=== PATIENT | female | born 1985 | race Caucasian/White ===

== ENCOUNTER 2018-02-21 10:11 | Inpatient (IN) | payer OTHER, MEDICAID ==
[2018-02-21] MEDS ORDERED: COLACE PO PRN (10:12)
[2018-02-21] MEDS ORDERED: DEEP SEA NS PRN (10:12)
[2018-02-21] MEDS ORDERED: SENOKOT S PO PRN (10:12)
--- NOTE | 2018-02-21 10:54 | History and Physical Report ---
History of Present Illness Date of examination: 02/21/18 (pt sent for APU admission from [facility] office due to elevated BP) Date of admission: 02/21/18 10:11 History of present illness: EDC Confirmation: 05/28/2018 Gestational Age: 6 2/7 weeks Past History : 6 Term Births: 0 Premature Births: 1 Living Children: 1 Para: 1 Mult. Births: 0 Prev : 0 Aborta: 3 Elect. Ab: 1 Spont. Ab: 2 Ectopics: 0 # 1 Delivery date: 2001 Weeks Gestation: 6 Delivery type: EAB Comments: D & C # 2 Delivery date: 2004 Weeks Gestation: 8 Delivery type: SAB # 3 Delivery date: 06/06/2012 Weeks Gestation: 19 Delivery type: SAB Delivery location: [place] Comments: hx supports cx incompetence/followed by labor D & E # 4 Delivery date: 03/08/2013 Weeks Gestation: 23 labor: yes Delivery type: Hours of labor: 18 Delivery location: [place] Infant Sex: Female weight: 1 lb 2 oz Name: Wilber Comments: Cerclage placed PPROM (cerclage was placed at 14 wga) # 5 Delivery date: 2015 Weeks Gestation: 14 Delivery type: SAB Comments: was in L&D for cerclage and dx IUFD Past Medical History: Reviewed history from 05/03/2016 and no changes required: D V T (2009) PCOS Pulmonary embolism with OCPs Cerclage (2012) Factor V leiden deficiency Past Medical History Abnormal PAP: negative REGGIE Exposure: negative Infertility: negative Uterine Anomaly: negative Uterine Surgery (not C/S): negative Other Gynecologic Problems: negative Social Hx: Patient is single [employer] Smoking History: Patient has never smoked. Infection History Hx of STD: none Varicella/Chicken Pox Status: Previous Disease Genetic History Congenital Heart Defect: Mom: no Dad: no Ricardo Disease: Mom: no Dad: no Thalassemia Mom: no Dad: no Neural Tube Defect Mom: no Dad: no Down's Syndrome Mom: no Dad: no Mario-Sachs Mom: no Dad: no Sickle Cell Disease/Trait Mom: no Dad: no Hemophilia Mom: no Dad: no Muscular Dystrophy Mom: no Dad: no Cystic Fibrosis Mom: no Dad: no Liz Chorea Mom: no Dad: no Mental Retardation Mom: no Dad: no Fragile X Mom: no Dad: no Other Genetic/Chromosomal Disorder Mom: no Dad: no Child w/other defect Mom: no Dad: no Enviromental Exposures Xray Exposure: no Medication, drug, or alcohol use since LMP: no Chemical/Other Exposure: no Exposure to Cat Liter: no Hx of Parvovirus (Fifth Disease): no Occupational Exposure to Children: none Active Medications (reviewed today): DICLEGIS 10-10 MG ORAL TABLET DELAYED RELEASE (DOXYLAMINE-PYRIDOXINE) 2 tabs PO qhs, then 1 tab PO in AM and 1 tab PO at noon as needed for nausea PNV FOLIC ACID + IRON 27-1 MG ORAL TABLET ( VIT-FE FUMARATE-FA) 1 tab PO qdaily LOVENOX 40 MG/0.4ML SUBCUTANEOUS SOLUTION (ENOXAPARIN SODIUM) 1 Subq injection qdaily BACTRIM DS 800-160 MG ORAL TABLET (SULFAMETHOXAZOLE-TRIMETHOPRIM) 1 tab PO BID x 7 days ZOFRAN ODT 8 MG ORAL TABLET DISINTEGRATING (ONDANSETRON) 1 tab PO q12 hours prn nausea Current Allergies (reviewed today): No known allergies Laboratory Results Routine Urinalysis Leukocytes: negative Nitrite: negative Urobilinogen: negative Protein: negative Blood: negative Ketone: negative Bilirubin: negative Glucose: negative Urine HCG: positive Review of Systems General Denies fever, chills, sweats, anorexia, fatigue, weakness, malaise, weight loss and sleep disorder. Denies nausea, vomiting, headache, swelling of legs, abdominal pain, vaginal discharge, vaginal bleeding and contractions. Denies vaginal discharge, incontinence, dysuria, hematuria, urinary frequency, amenorrhea, menorrhagia, abnormal vaginal bleeding, pelvic pain, genital sores, decreased libido, painful periods, painful sex, urinary urgency, hot flashes, vaginal dryness, vaginal itching and vaginal odor. CV Denies chest pains, palpitations, syncope, dyspnea on exertion, orthopnea, PND and peripheral edema. Resp Denies cough, dyspnea at rest, excessive sputum, hemoptysis, wheezing and pleurisy. GI Denies nausea, vomiting, diarrhea, constipation, change in bowel habits, abdominal pain, melena, hematochezia, jaundice, gas/bloating, indigestion/ heartburn, dysphagia and odynophagia. Endo Denies cold intolerance, heat intolerance, polydipsia, polyphagia, polyuria and unusual weight change. Breast Denies left breast lump, right breast lump, nipple discharge, bloody discharge from nipple, breast pain, abnormal mammogram and breast enlargement. MS Denies back pain, joint pain, joint swelling, muscle cramps, muscle weakness, stiffness, arthritis, sciatica, restless legs, leg pain at night and leg pain with exertion. Derm Denies rash, itching, dryness and suspicious lesions. Neuro Denies paralysis, paresthesias, headache, seizures, tremors, vertigo, transient blindness, frequent falls, frequent headaches and difficulty walking. Psych Denies depression, anxiety, irritability and mood swings. Eyes Denies blurring, diplopia, irritation, discharge, vision loss, eye pain and photophobia. ENT Denies earache, ear discharge, tinnitus, decreased hearing, nasal congestion, nosebleeds, sore throat and hoarseness. Allergy Denies urticaria, allergic rash, hay fever and recurrent infections. Heme Denies abnormal bruising, bleeding and enlarged lymph nodes. Past History - Obstetrical History Expected Date of Delivery: 05/28/18 Actual Gestation: 26 Week(s) 2 Day(s) : 6 Para: 1 Hx # Term Pregnancies: 0 Number of Pregnancies: 1 Spontaneous Abortions: 3 Induced : 1 Number of Living Children: 1 Medications and Allergies Allergies Allergy/AdvReac Type Severity Reaction Status Date / Time No Known Allergies Allergy Verified 02/21/18 10:52 Home Medications Medication Instructions Recorded Confirmed Last Taken Type Enoxaparin [Lovenox] 40 mg SC ONCE 02/21/18 02/21/18 02/20/18 08:00 History Pediatric Multivitamin No.76 1 tab PO ONCE 02/21/18 02/21/18 02/19/18 08:00 History [Flintstones Complete] 2 tabs Active Meds: Active Medications Acetaminophen (Tylenol) 650 mg PO Q4H PRN PRN Reason: Pain MILD(1-3)/Fever >100.5/DYE Betamethasone Acet/Betameth SodPhos (Celestone Soluspan) 12 mg IM Q24HR GABRIELE Stop: 02/22/18 10:01 Docusate Sodium (Colace) 100 mg PO Q12H PRN PRN Reason: Constipation Guaifenesin (Guaifenesin Dm Syrup) 10 ml PO Q6H PRN PRN Reason: Cough Heparin Sodium (Porcine) (Heparin) 5,000 unit SUB-Q Q12HR GABRIELE Lactated Ringer's (Lactated Ringers) 1,000 mls @ 125 mls/hr IV DIRECT GABRIELE Magnesium Sulfate (Magnesium Sulfate 40gm/1000ml) 40 gm in 1,000 mls @ 50 mls/ hr IV DIRECT GABRIELE Multivitamins/Iron/Calcium ( Vitamin) 1 each PO QDAY GABRIELE Ondansetron HCl (Zofran) 4 mg IV Q6H PRN PRN Reason: Nausea And Vomiting Senna/Docusate Sodium (Senokot S) 2 tab PO Q12H PRN PRN Reason: Laxative Effect Simethicone (Mylicon) 80 mg PO Q6H PRN PRN Reason: Gas pain Sodium Chloride (Deep Sea) 2 spray NS Q4H PRN PRN Reason: Congestion Zolpidem Tartrate (Ambien) 10 mg PO ONCE PRN PRN Reason: Sleep - Physical Exam Breasts: Positive: deferred Cardiovascular: Regular rate, Normal S1, Normal S2 Lungs: Positive: Clear to auscultation, Normal air movement Abdomen: Positive: normal appearance, soft, normal bowel sounds. Negative: distention, tenderness Genitourinary (Female): Positive: normal external genitalia, normal perenium Vulva: both: normal Vagina: Positive: normal moisture. Negative: discharge Cervix: Negative: lesion, discharge Uterus: Positive: normal size, normal contour Adnexa: both: normal Anus/Rectum: Positive: normal perianal skin, heme negative. Negative: rectal mass, hemorrhoids Extremities: Positive: edema Deep Tendon Reflex Grade: Normal but brisk +3 - Obstetrical FHR: category 1 Uterine Contraction Monitor Mode: External Uterine Contraction Pattern: Absent Uterine Tone Measurement Phase: Resting Results Result Diagrams: 02/21/18 11:52 02/21/18 11:52 All other labs normal. HBsAg Screen Negative Negative *1 RPR Non Reactive Non Reactive *2 Rubella Antibodies, IgG 7.78 index Immune >0.99 *3 Non-immune <0.90 Equivocal 0.90 - 0.99 Immune >0.99 ABO Grouping B *4 Rh Factor Positive *5 Please note: Prior records for this patient's ABO / Rh type are not available for additional verification. Antibody Screen Negative Negative *6 WBC 7.5 x10E3/uL 3.4-10.8 *7 RBC 4.66 x10E6/uL 3.77-5.28 *8 Hemoglobin 13.2 g/dL 11.1-15.9 *9 Please note reference interval change Hematocrit 39.8 % 34.0-46.6 *10 MCV 85 fL 79-97 *11 MCH 28.3 pg 26.6-33.0 *12 MCHC 33.2 g/dL 31.5-35.7 *13 RDW 13.5 % 12.3-15.4 *14 Platelets 285 x10E3/uL 150-379 *15 Neutrophils 51 % Not Estab. *16 Lymphs 37 % Not Estab. *17 Monocytes 6 % Not Estab. *18 Eos 3 % Not Estab. *19 Basos 1 % Not Estab. *20 ! Immature Cells <No Reported Value> *21 Neutrophils (Absolute) 3.9 x10E3/uL 1.4-7.0 *22 Lymphs (Absolute) 2.7 x10E3/uL 0.7-3.1 *23 Monocytes(Absolute) 0.4 x10E3/uL 0.1-0.9 *24 Eos (Absolute) 0.2 x10E3/uL 0.0-0.4 *25 Baso (Absolute) 0.0 x10E3/uL 0.0-0.2 *26 ! Immature Granulocytes 2 % Not Estab. *27 ! Immature Grans (Abs) 0.1 x10E3/uL 0.0-0.1 *28 ! NRBC <No Reported Value> *29 Hematology Comments: <No Reported Value> *30 Tests: (2) Cystic Fibrosis Profile (115977) ! CF, Screen Comment: *31 RESULTS: Negative for 32 mutations analyzed I Tests: (3) HB Solu + Rflx Fra (609754) Hemoglobin (Hgb) Solubility Negative Negative *33 Tests: (4) Panel 910091 (025923) HIV Screen 4th Generation wRfx Non Reactive Non Reactive *34 Tests: (5) HCV Ab w/Rflx to Verification (874662) ! HCV Ab <0.1 s/co ratio 0.0-0.9 *35 Tests: (6) Comment: (752498) ! Comment: SPRCS *36 Non reactive HCV antibody screen is consistent with no HCV infection, unless recent infection is suspected or other evidence exists to indicate HCV infection. Tests: (7) Urine Culture, Routine (821252) Urine Culture, Routine Final report *37 Tests: (8) Result (117512) ! Result 1 "Result Below..." *38 RESULT: Lactobacillus species 10,000-25,000 colony forming units per mL Susceptibility not normally performed on this organism. Assessment and Plan 32yo @ 26w sent from [facility] office today with elevated blood pressures. PIH labs and 24hr urine, BMZ, and switch from Lovenox to heparin for hx of DVT/PE. made aware of admission and consulted for orders. Spoke again with received orders for evaluation on Sunday for BPP and Dopplers. All orders in EMR. - Patient Problems (1) Elevated blood pressure affecting in second trimester, antepartum Onset Date: ~02/21/18 Current Visit: Yes Status: Acute Plan to address problem: PIH labs, 24hr urine, close observation of blood pressures (2) History of pulmonary embolus (PE) Onset Date: ~02/21/18 Current Visit: Yes Status: Acute Plan to address problem: Heparin 5,000 subq BID (3) Shirodkar cerclage present, antepartum Onset Date: ~02/21/18 Current Visit: Yes Status: Acute Plan to address problem: abdominal cerclage; section when decision for delivery is made Pt is aware (4) Asymmetric IUGR affecting , antepartum Onset Date: ~02/21/18 Current Visit: Yes Status: Acute Plan to address problem: continuous Monitoring; BPP and Doppler study Sunday per 's request
[2018-02-21 12:09] LABS: Basophils # (Auto) 0.1 K/mm3 (0.0-0.1); Basophils % (Auto) 0.8 % (0.0-1.8); Eosinophils # (Auto) 0.2 K/mm3 (0.0-0.4); Eosinophils % (Auto) 2.1 % (0.0-4.3); Hematocrit 35.3 % (30.3-42.9); Hemoglobin 11.9 gm/dl (10.1-14.3); Lymphocytes # (Auto) 2.4 K/mm3 (1.2-5.4); Lymphocytes % (Auto) 30.3 % (13.4-35.0); Mean Corpuscular HGB Conc 34 % (30-34); Mean Corpuscular Hemoglobin 29 pg (28-32); Mean Corpuscular Volume 86 fl (79-97); Monocytes # (Auto) 0.5 K/mm3 (0.0-0.8); Monocytes % (Auto) 6.8 % (0.0-7.3); Platelet Count 188 K/mm3 (140-440); Red Blood Count 4.12 M/mm3 (3.65-5.03); Red Cell Distribution Width 15.1 % (13.2-15.2)
[2018-02-21] MEDS ORDERED: MAGNESIUM SULFATE 4GM/100ML 4 GM/100 ML BAG IV ONE (12:12)
[2018-02-21 12:29] LABS: Alanine Aminotransferase 11 units/L (7-56); Uric Acid 7.2 mg/dL (3.5-7.6)
[2018-02-21] MEDS: CELESTONE SOLUSPAN IM SCH (12:30)
[2018-02-21] MEDS: LACTATED RINGERS 1,000 ML IV SCH ×2 (13:08→22:39)
[2018-02-21] MEDS: MAGNESIUM SULFATE 40GM/1000ML 40 GM/1,000 ML BAG IV SCH (15:01)
[2018-02-21] MEDS: HEPARIN SUB-Q SCH ×2 (16:26→22:33)
[2018-02-21 17:30] LABS: Bacteria,Urine 3+ /HPF (Negative); Bilirubin,Urine NEG (Negative); Blood,Urine NEG (Negative); Color,Urine Yellow (Yellow); Hyaline Casts,Urine 1 /LPF; Mucus,Urine 1+ /HPF; Urobilinogen,Urine < 2.0 mg/dL (<2.0)
[2018-02-22] MEDS: AMBIEN PO PRN (02:08)
[2018-02-22] MEDS: MYLICON PO PRN (02:08)
--- NOTE | 2018-02-22 07:53 | Progress Note ---
Assessment and Plan pt resting on right side, reports feeling dizzy after standing to be weighed but denied any other complaints. She voiced questions about plan of care. 24h urine up @ 11am. b/p's remain elevated, mostly in the 130-160's/70-90's range. She reports DYE only after mag was started, denies epigastric pain or visual changes. FHT normal for gestation, difficult to monitor at times, but + accels and min-average variability. Active movement noted during assessment. Mag level 5.9 @ 0545, urine output adequate. Continue current management. Dr. Yao aware of patient. - Patient Problems (1) 26 weeks gestation of Current Visit: Yes Status: Acute (2) Asymmetric IUGR affecting , antepartum Onset Date: ~02/21/18 Current Visit: Yes Status: Acute (3) Elevated blood pressure affecting in second trimester, antepartum Onset Date: ~02/21/18 Current Visit: Yes Status: Acute (4) Factor 5 Leiden mutation, heterozygous Onset Date: ~02/21/18 Current Visit: Yes Status: Acute (5) History of pulmonary embolus (PE) Onset Date: ~02/21/18 Current Visit: Yes Status: Acute (6) Shirodkar cerclage present, antepartum Onset Date: ~02/21/18 Current Visit: Yes Status: Acute Subjective - Subjective Date of service: 02/22/18 (Consumer Credit Counselor note) Principal diagnosis: IUP 26+3, elevated b/p, 24hurine in progress, abdominal cerclage Patient reports: movement normal, no new complaints, no loss of fluid, no vaginal bleeding, no contractions Objective - Vital Signs Vital Signs: Vital Signs - 12hr 02/21/18 02/21/18 02/21/18 19:52 19:57 20:02 Temperature Pulse Rate 92 H 94 H 88 Respiratory Rate Blood Pressure 144/87 148/90 152/94 O2 Sat by Pulse Oximetry 02/21/18 02/21/18 02/21/18 20:07 20:12 20:17 Temperature Pulse Rate 95 H 85 91 H Respiratory Rate Blood Pressure 140/89 138/85 154/91 O2 Sat by Pulse Oximetry 02/21/18 02/21/18 02/21/18 20:22 20:27 20:32 Temperature Pulse Rate 89 88 86 Respiratory Rate Blood Pressure 148/89 141/86 155/91 O2 Sat by Pulse Oximetry 02/21/18 02/21/18 02/21/18 20:37 20:42 20:47 Temperature Pulse Rate 82 87 90 Respiratory Rate Blood Pressure 133/81 152/80 149/83 O2 Sat by Pulse Oximetry 02/21/18 02/21/18 02/21/18 20:52 20:57 21:02 Temperature Pulse Rate 85 83 82 Respiratory Rate Blood Pressure 141/87 145/92 145/89 O2 Sat by Pulse Oximetry 02/21/18 02/21/18 02/21/18 21:07 21:12 21:17 Temperature Pulse Rate 81 85 78 Respiratory Rate Blood Pressure 145/87 143/84 118/66 O2 Sat by Pulse Oximetry 02/21/18 02/21/18 02/21/18 21:22 21:27 21:30 Temperature 98.7 F Pulse Rate 78 88 Respiratory 16 Rate Blood Pressure 140/82 146/86 O2 Sat by Pulse Oximetry 02/21/18 02/21/18 02/21/18 21:32 21:37 21:42 Temperature Pulse Rate 83 85 84 Respiratory Rate Blood Pressure 145/87 139/86 135/84 O2 Sat by Pulse Oximetry 02/21/18 02/21/18 02/21/18 21:46 21:52 21:57 Temperature Pulse Rate 84 83 82 Respiratory Rate Blood Pressure 139/86 137/88 138/84 O2 Sat by Pulse Oximetry 02/21/18 02/21/18 02/21/18 22:02 22:07 22:12 Temperature Pulse Rate 83 85 84 Respiratory Rate Blood Pressure 140/86 143/91 121/82 O2 Sat by Pulse Oximetry 02/21/18 02/21/18 02/21/18 22:17 22:22 22:27 Temperature Pulse Rate 81 77 82 Respiratory Rate Blood Pressure 136/80 126/68 133/76 O2 Sat by Pulse Oximetry 02/21/18 02/21/18 02/21/18 22:32 22:37 22:42 Temperature Pulse Rate 84 87 91 H Respiratory Rate Blood Pressure 136/83 139/87 142/94 O2 Sat by Pulse Oximetry 02/21/18 02/21/18 02/21/18 22:47 22:52 22:56 Temperature Pulse Rate 85 81 80 Respiratory Rate Blood Pressure 143/85 122/75 119/72 O2 Sat by Pulse Oximetry 02/21/18 02/21/18 02/21/18 23:00 23:01 23:07 Temperature Pulse Rate 80 83 Respiratory 18 Rate Blood Pressure 124/73 124/76 O2 Sat by Pulse Oximetry 02/21/18 02/21/18 02/21/18 23:12 23:17 23:22 Temperature Pulse Rate 81 82 77 Respiratory Rate Blood Pressure 132/80 135/80 133/84 O2 Sat by Pulse Oximetry 02/21/18 02/21/18 02/21/18 23:27 23:32 23:37 Temperature Pulse Rate 83 81 78 Respiratory Rate Blood Pressure 127/81 134/74 137/77 O2 Sat by Pulse Oximetry 02/21/18 02/21/18 02/22/18 23:42 23:47 00:00 Temperature 98.2 F Pulse Rate 80 80 Respiratory 18 Rate Blood Pressure 133/80 133/80 O2 Sat by Pulse Oximetry 02/22/18 02/22/18 02/22/18 00:18 00:48 01:00 Temperature Pulse Rate 81 81 Respiratory 18 Rate Blood Pressure 133/83 144/83 O2 Sat by Pulse Oximetry 02/22/18 02/22/18 02/22/18 01:19 01:49 02:14 Temperature Pulse Rate 106 H 83 81 Respiratory Rate Blood Pressure 164/75 160/92 146/91 O2 Sat by Pulse Oximetry 02/22/18 02/22/18 02/22/18 02:18 02:49 03:00 Temperature Pulse Rate 84 72 Respiratory 18 Rate Blood Pressure 148/93 138/73 O2 Sat by Pulse Oximetry 02/22/18 02/22/18 02/22/18 03:19 03:49 04:00 Temperature 98.5 F Pulse Rate 82 77 Respiratory 18 Rate Blood Pressure 114/63 122/69 O2 Sat by Pulse Oximetry 02/22/18 02/22/18 02/22/18 04:18 04:48 05:19 Temperature Pulse Rate 78 78 85 Respiratory Rate Blood Pressure 132/77 135/76 138/82 O2 Sat by Pulse Oximetry 02/22/18 02/22/18 02/22/18 06:19 06:31 06:36 Temperature Pulse Rate 93 H 104 H 99 H Respiratory Rate Blood Pressure 131/71 O2 Sat by Pulse 100 98 Oximetry 02/22/18 02/22/18 02/22/18 06:41 06:42 06:46 Temperature Pulse Rate 98 H 91 H 90 Respiratory Rate Blood Pressure O2 Sat by Pulse 98 94 100 Oximetry 02/22/18 02/22/18 02/22/18 06:49 06:51 06:56 Temperature Pulse Rate 91 H 94 H 101 H Respiratory Rate Blood Pressure 161/105 O2 Sat by Pulse 100 99 Oximetry 02/22/18 02/22/18 02/22/18 07:01 07:06 07:11 Temperature Pulse Rate 91 H 99 H 87 Respiratory Rate Blood Pressure O2 Sat by Pulse 99 99 99 Oximetry 02/22/18 02/22/18 02/22/18 07:16 07:19 07:21 Temperature Pulse Rate 89 90 86 Respiratory Rate Blood Pressure 147/95 O2 Sat by Pulse 99 99 Oximetry 02/22/18 02/22/18 02/22/18 07:26 07:31 07:36 Temperature Pulse Rate 103 H 98 H 99 H Respiratory Rate Blood Pressure O2 Sat by Pulse 96 99 98 Oximetry 02/22/18 02/22/18 02/22/18 07:41 07:46 07:49 Temperature Pulse Rate 94 H 87 101 H Respiratory Rate Blood Pressure 157/102 O2 Sat by Pulse 96 96 Oximetry 02/22/18 07:51 Temperature Pulse Rate 95 H Respiratory Rate Blood Pressure O2 Sat by Pulse 96 Oximetry - Exam Breasts: normal Cardiovascular: Regular rate Lungs: Clear to auscultation, Normal air movement Abdomen: Present: normal appearance, soft Uterus: Present: normal FHR: category 2 Uterine Contraction Monitor Mode: External Uterine Contraction Frequency (min): none Uterine Contraction Pattern: Absent Uterine Tone Measurement Phase: Resting Extremities: normal Deep Tendon Reflex Grade: Normal +2 - Labs Labs: Abnormal Labs 02/21/18 02/21/18 02/21/18 11:52 17:05 17:50 Magnesium 4.30 H Lactate Dehydrogenase 182 H Urine WBC (Auto) 7.0 H 02/22/18 02/22/18 00:45 05:45 Magnesium 5.10 H 5.90 H Lactate Dehydrogenase Urine WBC (Auto) Laboratory Results - last 24 hr 02/21/18 02/21/18 02/21/18 11:51 11:52 11:52 WBC 7.9 RBC 4.12 Hgb 11.9 Hct 35.3 MCV 86 MCH 29 MCHC 34 RDW 15.1 Plt Count 188 Lymph % (Auto) 30.3 Trigg % (Auto) 6.8 Eos % (Auto) 2.1 Baso % (Auto) 0.8 Lymph # 2.4 Trigg # 0.5 Eos # 0.2 Baso # 0.1 Seg Neutrophils % 60.0 Seg Neutrophils # 4.7 Creatinine 0.7 Estimated GFR > 60 Uric Acid 7.2 Magnesium AST 17 ALT 11 Lactate Dehydrogenase 182 H Urine Color Urine Turbidity Urine pH Ur Specific [place] Urine Protein Urine Glucose (UA) Urine Ketones Urine Blood Urine Nitrite Urine Bilirubin Urine Urobilinogen Ur Leukocyte Esterase Urine WBC (Auto) Urine RBC (Auto) U Epithel Cells (Auto) Urine Bacteria (Auto) Hyaline Casts Urine Mucus Blood Type B POSITIVE Antibody Screen Negative 02/21/18 02/21/18 02/22/18 17:05 17:50 00:45 WBC RBC Hgb Hct MCV MCH MCHC RDW Plt Count Lymph % (Auto) Trigg % (Auto) Eos % (Auto) Baso % (Auto) Lymph # Trigg # Eos # Baso # Seg Neutrophils % Seg Neutrophils # Creatinine Estimated GFR Uric Acid Magnesium 4.30 H 5.10 H AST ALT Lactate Dehydrogenase Urine Color Yellow Urine Turbidity Clear Urine pH 6.0 Ur Specific [place] 1.025 Urine Protein 100 mg/dl Urine Glucose (UA) Neg Urine Ketones Neg Urine Blood Neg Urine Nitrite Neg Urine Bilirubin Neg Urine Urobilinogen < 2.0 Ur Leukocyte Esterase Sm Urine WBC (Auto) 7.0 H Urine RBC (Auto) 3.0 U Epithel Cells (Auto) 3.0 Urine Bacteria (Auto) 3+ Hyaline Casts 1 Urine Mucus 1+ Blood Type Antibody Screen 02/22/18 05:45 WBC RBC Hgb Hct MCV MCH MCHC RDW Plt Count Lymph % (Auto) Trigg % (Auto) Eos % (Auto) Baso % (Auto) Lymph # Trigg # Eos # Baso # Seg Neutrophils % Seg Neutrophils # Creatinine Estimated GFR Uric Acid Magnesium 5.90 H AST ALT Lactate Dehydrogenase Urine Color Urine Turbidity Urine pH Ur Specific [place] Urine Protein Urine Glucose (UA) Urine Ketones Urine Blood Urine Nitrite Urine Bilirubin Urine Urobilinogen Ur Leukocyte Esterase Urine WBC (Auto) Urine RBC (Auto) U Epithel Cells (Auto) Urine Bacteria (Auto) Hyaline Casts Urine Mucus Blood Type Antibody Screen
[2018-02-22] MEDS: PRENATAL VITAMIN PO SCH (10:37)
[2018-02-22] MEDS: HEPARIN SUB-Q SCH ×2 (10:37→21:44)
[2018-02-22] MEDS: CELESTONE SOLUSPAN IM SCH (12:00)
[2018-02-22] MEDS: LACTATED RINGERS 1,000 ML IV SCH (12:17)
[2018-02-22] MEDS: MAGNESIUM SULFATE 40GM/1000ML 40 GM/1,000 ML BAG IV SCH (12:20)
--- NOTE | 2018-02-22 15:47 | Event Note ---
Date: 02/22/18 24h urine results reviewed 1100mg, Dr. Yao made aware. [facility]
--- NOTE | 2018-02-22 18:54 | Event Note ---
Date: 02/22/18 Pt now with dx of pre E in addttion to h/o prev PE, cervical incompetence( abdominal cerclage in place). Pt was sent for AMFM on yesterday for evaluation due to elevated bps. Pt is . will await recommendations at this time BMZ x2 completed. Will con't magnesium at this time until further recommendations made.
[2018-02-22] MEDS: ZOFRAN IV PRN (21:43)
--- NOTE | 2018-02-22 23:39 | Event Note ---
Date: 02/22/18 Mg d/c as pt was having c/o feeling lethargic. level was found to be normal. Will con't to hold as 24hr protein completed and bp is currently stable. [facility]
[2018-02-23] MEDS: LACTATED RINGERS 1,000 ML IV SCH ×3 (00:25→17:39)
--- NOTE | 2018-02-23 09:36 | Ultrasound Report ---
ULTRASOUND BIOPHYSICAL PROFILE: History: well being Technique: Transabdominal ultrasound with Doppler interrogation. 0 - breathing movements 2 - movements 2 - posture and tone 2 - Qualitative amniotic fluid volume 6 - TOTAL SCORE OF POSSIBLE 8 Heart Rate (bpm) 145
--- NOTE | 2018-02-23 09:38 | Ultrasound Report ---
ULTRASOUND OB VELOCIMETRY UMBILICAL ARTERY HISTORY: well being. TECHNIQUE: Transabdominal ultrasound. Spectral Doppler interrogation was performed on 3 segments of the umbilical cord. FINDINGS: heart rate measures 141 beats per minute. The spectral waveforms are normal and persistent. No evidence for loss or reversal of end-diastolic flow. The resistive index average measures 0.78. The systolic/diastolic ratio average measures 4.6. IMPRESSION: Elevated resistive indices as described.
[2018-02-23] MEDS: PRENATAL VITAMIN PO SCH (10:01)
[2018-02-23] MEDS: HEPARIN SUB-Q SCH ×2 (10:06→23:13)
--- NOTE | 2018-02-23 12:09 | Progress Note ---
Assessment and Plan - Patient Problems (1) 26 weeks gestation of Current Visit: Yes Status: Acute (2) Asymmetric IUGR affecting , antepartum Onset Date: ~02/21/18 Current Visit: Yes Status: Acute (3) Elevated blood pressure affecting in second trimester, antepartum Onset Date: ~02/21/18 Current Visit: Yes Status: Acute Plan to address problem: Patient did complain of slight headache but improving. Patient without complaint abdominal pain nausea vomiting. Patient feels much better. Magnesium sulfate. Patient blood pressures reviewed still slightly elevated. We'll continue expectant management for now per perinatology note patient remained stable plan is to deliver approximately 34 weeks or sooner clinical picture demands. (4) Factor 5 Leiden mutation, heterozygous Onset Date: ~02/21/18 Current Visit: Yes Status: Chronic (5) History of pulmonary embolus (PE) Onset Date: ~02/21/18 Current Visit: Yes Status: Chronic Plan to address problem: Continue prophylaxis (6) Shirodkar cerclage present, antepartum Onset Date: ~02/21/18 Current Visit: Yes Status: Chronic Subjective - Subjective Principal diagnosis: IUP 26+4, elevated b/p, 24hurine in progress, abdominal cerclage Patient reports: movement normal, no new complaints, no loss of fluid, no vaginal bleeding, no contractions Objective - Vital Signs Vital Signs: Vital Signs - 12hr 02/23/18 02/23/18 02/23/18 00:53 01:53 04:08 Temperature 98.2 F Pulse Rate 85 88 81 Respiratory 18 Rate Blood Pressure 133/72 137/77 136/80 Blood Pressure 136/80 [Right] O2 Sat by Pulse 96 Oximetry 02/23/18 02/23/18 02/23/18 04:25 06:25 08:13 Temperature Pulse Rate 71 71 87 Respiratory Rate Blood Pressure 162/83 166/77 168/95 Blood Pressure [Right] O2 Sat by Pulse Oximetry 02/23/18 02/23/18 02/23/18 08:16 08:21 08:25 Temperature 98 F Pulse Rate 64 64 65 Respiratory 16 Rate Blood Pressure 154/87 164/84 Blood Pressure 154/87 [Right] O2 Sat by Pulse Oximetry 02/23/18 10:25 Temperature Pulse Rate 64 Respiratory Rate Blood Pressure 167/83 Blood Pressure [Right] O2 Sat by Pulse Oximetry - Exam Breasts: deferred Cardiovascular: Regular rate Lungs: Normal air movement Abdomen: Present: normal appearance, soft, normal bowel sounds Uterus: Present: firm, fundal height above umbilicus FHR: category 2 Uterine Contraction Pattern: Absent Extremities: normal, edema (1+) - Labs Labs: Abnormal Labs 02/21/18 02/21/18 02/21/18 11:52 17:05 17:50 Magnesium 4.30 H Lactate Dehydrogenase 182 H Urine WBC (Auto) 7.0 H Ur Total Protein 24 Hr Urine Total Protein 02/22/18 02/22/18 02/22/18 00:45 05:45 11:08 Magnesium 5.10 H 5.90 H Lactate Dehydrogenase Urine WBC (Auto) Ur Total Protein 24 Hr 1105.00 H Urine Total Protein 85 H 02/22/18 02/22/18 12:07 21:51 Magnesium 5.80 H 6.00 H Lactate Dehydrogenase Urine WBC (Auto) Ur Total Protein 24 Hr Urine Total Protein Laboratory Results - last 24 hr 02/22/18 02/22/18 12:07 21:51 Magnesium 5.80 H 6.00 H - Results US- obstetric: report reviewed
[2018-02-23] MEDS: AMBIEN PO PRN (23:20)
[2018-02-24] MEDS: LACTATED RINGERS 1,000 ML IV SCH ×2 (02:05→10:49)
[2018-02-24] MEDS: ZOFRAN IV PRN (03:38)
[2018-02-24] MEDS: MYLICON PO PRN (03:39)
[2018-02-24] MEDS: TYLENOL PO PRN (03:39)
[2018-02-24] MEDS: APRESOLINE IV PRN (04:21)
--- NOTE | 2018-02-24 09:31 | Progress Note ---
Assessment and Plan - Patient Problems (1) 26 weeks gestation of Current Visit: Yes Status: Acute (2) Asymmetric IUGR affecting , antepartum Onset Date: ~02/21/18 Current Visit: Yes Status: Acute (3) Elevated blood pressure affecting in second trimester, antepartum Onset Date: ~02/21/18 Current Visit: Yes Status: Acute (4) Factor 5 Leiden mutation, heterozygous Onset Date: ~02/21/18 Current Visit: Yes Status: Chronic (5) History of pulmonary embolus (PE) Onset Date: ~02/21/18 Current Visit: Yes Status: Chronic Plan to address problem: Patient with slight increased size the left lower extremities negative Homans sign we will schedule lower extremity Dopplers rule out thrombus (6) Shirodkar cerclage present, antepartum Onset Date: ~02/21/18 Current Visit: Yes Status: Chronic Subjective - Subjective Principal diagnosis: IUP 26+5, elevated b/p, H/O DVT, abdominal cerclage Patient reports: new complaints, movement normal, other (patient was definitely no cough and complaints of swelling left lower extremity ), no loss of fluid, no vaginal bleeding, no contractions Objective - Vital Signs Vital Signs: Vital Signs - 12hr 02/23/18 02/24/18 02/24/18 23:03 00:22 02:22 Temperature Pulse Rate 60 50 L 45 L Respiratory Rate Blood Pressure 151/72 141/76 174/95 Blood Pressure [Right] O2 Sat by Pulse Oximetry 02/24/18 02/24/18 02/24/18 02:52 03:24 03:25 Temperature Pulse Rate 46 L 46 L 47 L Respiratory Rate Blood Pressure 180/85 205/95 167/75 Blood Pressure [Right] O2 Sat by Pulse Oximetry 02/24/18 02/24/18 02/24/18 03:31 03:36 04:03 Temperature Pulse Rate 46 L 61 62 Respiratory Rate Blood Pressure Blood Pressure [Right] O2 Sat by Pulse 94 96 86 Oximetry 02/24/18 02/24/18 02/24/18 04:04 04:10 04:12 Temperature Pulse Rate 47 L 46 L 46 L Respiratory Rate Blood Pressure 212/93 Blood Pressure [Right] O2 Sat by Pulse 98 98 Oximetry 02/24/18 02/24/18 02/24/18 04:15 04:21 04:36 Temperature Pulse Rate 50 L 48 L 55 L Respiratory Rate Blood Pressure 178/79 142/74 Blood Pressure [Right] O2 Sat by Pulse 98 Oximetry 02/24/18 02/24/18 02/24/18 04:39 04:54 05:09 Temperature Pulse Rate 63 71 88 Respiratory Rate Blood Pressure 138/72 129/69 129/69 Blood Pressure [Right] O2 Sat by Pulse Oximetry 02/24/18 02/24/18 02/24/18 05:24 05:39 05:55 Temperature Pulse Rate 68 75 67 Respiratory Rate Blood Pressure 132/71 137/80 160/83 Blood Pressure [Right] O2 Sat by Pulse Oximetry 02/24/18 02/24/18 02/24/18 05:56 06:57 07:33 Temperature Pulse Rate 62 53 L 54 L Respiratory Rate Blood Pressure 144/83 157/77 150/65 Blood Pressure [Right] O2 Sat by Pulse Oximetry 02/24/18 02/24/18 02/24/18 07:43 07:49 08:12 Temperature 97.4 F L Pulse Rate 54 L 52 L 55 L Respiratory 24 Rate Blood Pressure 163/77 Blood Pressure 150/65 [Right] O2 Sat by Pulse 96 97 Oximetry 02/24/18 08:56 Temperature Pulse Rate 50 L Respiratory Rate Blood Pressure 175/91 Blood Pressure [Right] O2 Sat by Pulse Oximetry - Exam Breasts: deferred Cardiovascular: Regular rate Abdomen: Present: normal appearance, soft. Absent: tenderness Uterus: Present: firm, fundal height above umbilicus FHR: category 2 Uterine Contraction Pattern: Absent Extremities: other ( mid thigh left 54cm right 52 cm mid calf left 28 cm right 27.5 cm) Deep Tendon Reflex Grade: Normal +2 - Labs Labs: Abnormal Labs 02/21/18 02/21/18 02/21/18 11:52 17:05 17:50 Magnesium 4.30 H Lactate Dehydrogenase 182 H Urine WBC (Auto) 7.0 H Ur Total Protein 24 Hr Urine Total Protein 02/22/18 02/22/18 02/22/18 00:45 05:45 11:08 Magnesium 5.10 H 5.90 H Lactate Dehydrogenase Urine WBC (Auto) Ur Total Protein 24 Hr 1105.00 H Urine Total Protein 85 H 02/22/18 02/22/18 12:07 21:51 Magnesium 5.80 H 6.00 H Lactate Dehydrogenase Urine WBC (Auto) Ur Total Protein 24 Hr Urine Total Protein - Allied health notes Allied health notes reviewed: (left mid thigh 54cm left mid calf 28 cm)
[2018-02-24] MEDS: GUAIFENESIN DM SYRUP PO PRN ×2 (10:14→18:21)
[2018-02-24] MEDS: PRENATAL VITAMIN PO SCH (10:16)
[2018-02-24] MEDS: HEPARIN SUB-Q SCH ×2 (10:17→22:07)
[2018-02-24] MEDS ORDERED: LACTATED RINGERS 1,000 ML IV SCH (11:00)
--- NOTE | 2018-02-24 11:12 | Progress Note ---
Assessment and Plan 1. IUP @ 26w5d - overall reassuring status 2. Preeclampsia - severe by BPs - continue inpatient expectant management - CBC and CMP every 2 to 3 days - twice weekly BPP starting at 27 weeks - delivery no later than 24 weeks (sooner if indicated) 3. IUGR - twice weekly BPP with dopplers - growth scans q 2 weeks (next due 03/01/18) 4. Incompetent Cervix - abdominal cerclage in place - will require delivery 5. Factor V Leiden Mutation - continue Heparin 5000 units SQ BID - LE dopplers ordered secondary to discordant LE edema Subjective - Subjective Principal diagnosis: IUP 26+5, elevated b/p, H/O DVT, abdominal cerclage Interval history: Reports she is nauseated and feels like she is retaining fluid. Denies headaches, visual changes, chest pain, SOB or RUQ pain. No contractions, leaking of fluid or vaginal bleeding. Good movement Patient reports: new complaints, movement normal, other (patient was definitely no cough and complaints of swelling left lower extremity ), no loss of fluid, no vaginal bleeding, no contractions Objective - Vital Signs Vital Signs: Vital Signs - 12hr 02/24/18 02/24/18 02/24/18 00:22 02:22 02:52 Temperature Pulse Rate 50 L 45 L 46 L Respiratory Rate Blood Pressure 141/76 174/95 180/85 Blood Pressure [Right] O2 Sat by Pulse Oximetry 02/24/18 02/24/18 02/24/18 03:24 03:25 03:31 Temperature Pulse Rate 46 L 47 L 46 L Respiratory Rate Blood Pressure 205/95 167/75 Blood Pressure [Right] O2 Sat by Pulse 94 Oximetry 02/24/18 02/24/18 02/24/18 03:36 04:03 04:04 Temperature Pulse Rate 61 62 47 L Respiratory Rate Blood Pressure Blood Pressure [Right] O2 Sat by Pulse 96 86 98 Oximetry 02/24/18 02/24/18 02/24/18 04:10 04:12 04:15 Temperature Pulse Rate 46 L 46 L 50 L Respiratory Rate Blood Pressure 212/93 Blood Pressure [Right] O2 Sat by Pulse 98 98 Oximetry 02/24/18 02/24/18 02/24/18 04:21 04:36 04:39 Temperature Pulse Rate 48 L 55 L 63 Respiratory Rate Blood Pressure 178/79 142/74 138/72 Blood Pressure [Right] O2 Sat by Pulse Oximetry 02/24/18 02/24/18 02/24/18 04:54 05:09 05:24 Temperature Pulse Rate 71 88 68 Respiratory Rate Blood Pressure 129/69 129/69 132/71 Blood Pressure [Right] O2 Sat by Pulse Oximetry 02/24/18 02/24/18 02/24/18 05:39 05:55 05:56 Temperature Pulse Rate 75 67 62 Respiratory Rate Blood Pressure 137/80 160/83 144/83 Blood Pressure [Right] O2 Sat by Pulse Oximetry 02/24/18 02/24/18 02/24/18 06:57 07:33 07:43 Temperature 97.4 F L Pulse Rate 53 L 54 L 54 L Respiratory 24 Rate Blood Pressure 157/77 150/65 Blood Pressure 150/65 [Right] O2 Sat by Pulse 96 Oximetry 02/24/18 02/24/18 02/24/18 07:49 08:12 08:56 Temperature Pulse Rate 52 L 55 L 50 L Respiratory Rate Blood Pressure 163/77 175/91 Blood Pressure [Right] O2 Sat by Pulse 97 Oximetry 02/24/18 02/24/18 02/24/18 09:32 09:37 09:42 Temperature Pulse Rate 58 L 73 55 L Respiratory Rate Blood Pressure 180/86 Blood Pressure [Right] O2 Sat by Pulse 99 97 98 Oximetry 02/24/18 02/24/18 02/24/18 09:44 09:47 09:48 Temperature 97.4 F L Pulse Rate 58 L 56 L 53 L Respiratory 24 Rate Blood Pressure 173/81 160/83 Blood Pressure 160/83 [Right] O2 Sat by Pulse 99 97 Oximetry 02/24/18 02/24/18 02/24/18 09:52 09:57 10:02 Temperature Pulse Rate 52 L 58 L 53 L Respiratory Rate Blood Pressure Blood Pressure [Right] O2 Sat by Pulse 97 98 96 Oximetry 02/24/18 02/24/18 02/24/18 10:07 10:12 10:15 Temperature Pulse Rate 55 L 56 L 57 L Respiratory Rate Blood Pressure Blood Pressure [Right] O2 Sat by Pulse 96 98 94 Oximetry 02/24/18 02/24/18 10:17 10:28 Temperature Pulse Rate 55 L 53 L Respiratory Rate Blood Pressure 161/85 Blood Pressure [Right] O2 Sat by Pulse 96 Oximetry - Exam Abdomen: Present: soft - Labs Labs: Abnormal Labs 02/21/18 02/21/18 02/21/18 11:52 17:05 17:50 Magnesium 4.30 H Lactate Dehydrogenase 182 H Urine WBC (Auto) 7.0 H Ur Total Protein 24 Hr Urine Total Protein 02/22/18 02/22/18 02/22/18 00:45 05:45 11:08 Magnesium 5.10 H 5.90 H Lactate Dehydrogenase Urine WBC (Auto) Ur Total Protein 24 Hr 1105.00 H Urine Total Protein 85 H 02/22/18 02/22/18 12:07 21:51 Magnesium 5.80 H 6.00 H Lactate Dehydrogenase Urine WBC (Auto) Ur Total Protein 24 Hr Urine Total Protein
[2018-02-24 13:54] LABS: Hematocrit 31.6 % (30.3-42.9); Hemoglobin 10.6 gm/dl (10.1-14.3); Mean Corpuscular HGB Conc 33 % (30-34); Mean Corpuscular Hemoglobin 29 pg (28-32); Mean Corpuscular Volume 87 fl (79-97); Platelet Count 215 K/mm3 (140-440); Red Blood Count 3.65 M/mm3 (3.65-5.03); Red Cell Distribution Width 15.5 % (13.2-15.2)
[2018-02-24 14:08] LABS: Alanine Aminotransferase 10 units/L (7-56)
[2018-02-24 14:51] LABS: Basophils % (Manual) 0 % (0.0-1.8); Total Cells Counted 100
[2018-02-24 14:52] LABS: Anisocytosis 1+; Platelet Estimate Consistent w Auto
[2018-02-24 19:15] LABS: BUN/Creatinine Ratio 25; Blood Urea Nitrogen 15 mg/dL (7-17); Calcium 7.5 mg/dL (8.4-10.2); Hemolysis Index 14
[2018-02-25] MEDS: APRESOLINE IV PRN ×2 (01:42→19:43)
--- NOTE | 2018-02-25 06:34 | Progress Note ---
Assessment and Plan - Patient Problems (1) Elevated blood pressure affecting in second trimester, antepartum Onset Date: ~02/21/18 Current Visit: Yes Status: Acute Plan to address problem: Pt A&O X 3 Coughing w/o sputum Lung funes diminished breath sounds Wheezing noted BP 175/91, repeat BP 152/75. Swelling noted in arms and legs. DTRs brisk w /o clonus SCD are not on. Pt asking to go home. Explained that close monitoring allows rapid intervention if necessary pt voiced understanding. Pt has had almost 10 pound wgt gain since admission on 02/21/18. Adequate urine output tracing Category 1 for 26 weeks. IUP @ 26w6d with PreE; Abdominal cerclage ; HX DVT/PE P: CXR ordered, RASHEL flowers, TRINIDAD as noted. aware of findings (2) History of pulmonary embolus (PE) Onset Date: ~02/21/18 Current Visit: Yes Status: Chronic (3) Shirodkar cerclage present, antepartum Onset Date: ~02/21/18 Current Visit: Yes Status: Chronic (4) Asymmetric IUGR affecting , antepartum Onset Date: ~02/21/18 Current Visit: Yes Status: Acute Subjective - Subjective Date of service: 02/25/18 (Pt asking to go home) Principal diagnosis: IUP 26+6, elevated b/p, H/O DVT, abdominal cerclage Interval history: EDC Confirmation: 05/28/2018 Gestational Age: 6 2/7 weeks Past History : 6 Term Births: 0 Premature Births: 1 Living Children: 1 Para: 1 Mult. Births: 0 Prev : 0 Aborta: 3 Elect. Ab: 1 Spont. Ab: 2 Ectopics: 0 # 1 Delivery date: 2001 Weeks Gestation: 6 Delivery type: EAB Comments: D & C # 2 Delivery date: 2004 Weeks Gestation: 8 Delivery type: SAB # 3 Delivery date: 06/06/2012 Weeks Gestation: 19 Delivery type: SAB Delivery location: [place] Comments: hx supports cx incompetence/followed by labor D & E # 4 Delivery date: 03/08/2013 Weeks Gestation: 23 labor: yes Delivery type: Hours of labor: 18 Delivery location: [place] Sex: Female weight: 1 lb 2 oz Name: Wilber Comments: Cerclage placed PPROM (cerclage was placed at 14 wga) # 5 Delivery date: 2016 Weeks Gestation: 14 Delivery type: SAB Comments: was in L&D for cerclage and dx IUFD Past Medical History: Reviewed history from 05/03/2016 and no changes required: D V T (2009) PCOS Pulmonary embolism with OCPs Cerclage (2012) Factor V leiden deficiency Past Medical History Abnormal PAP: negative REGGIE Exposure: negative Infertility: negative Uterine Anomaly: negative Uterine Surgery (not C/S): negative Other Gynecologic Problems: negative Social Hx: Patient is single [facility] Smoking History: Patient has never smoked. Infection History Hx of STD: none Varicella/Chicken Pox Status: Previous Disease Genetic History Congenital Heart Defect: Mom: no Dad: no Ricardo Disease: Mom: no Dad: no Thalassemia Mom: no Dad: no Neural Tube Defect Mom: no Dad: no Down's Syndrome Mom: no Dad: no Mario-Sachs Mom: no Dad: no Sickle Cell Disease/Trait Mom: no Dad: no Hemophilia Mom: no Dad: no Muscular Dystrophy Mom: no Dad: no Cystic Fibrosis Mom: no Dad: no [place] Chorea Mom: no Dad: no Mental Retardation Mom: no Dad: no Fragile X Mom: no Dad: no Other Genetic/Chromosomal Disorder Mom: no Dad: no Child w/other defect Mom: no Dad: no Enviromental Exposures Xray Exposure: no Medication, drug, or alcohol use since LMP: no Chemical/Other Exposure: no Exposure to Cat Liter: no Hx of Parvovirus (Fifth Disease): no Occupational Exposure to Children: none Active Medications (reviewed today): DICLEGIS 10-10 MG ORAL TABLET DELAYED RELEASE (DOXYLAMINE-PYRIDOXINE) 2 tabs PO qhs, then 1 tab PO in AM and 1 tab PO at noon as needed for nausea PNV FOLIC ACID + IRON 27-1 MG ORAL TABLET ( VIT-FE FUMARATE-FA) 1 tab PO qdaily LOVENOX 40 MG/0.4ML SUBCUTANEOUS SOLUTION (ENOXAPARIN SODIUM) 1 Subq injection qdaily BACTRIM DS 800-160 MG ORAL TABLET (SULFAMETHOXAZOLE-TRIMETHOPRIM) 1 tab PO BID x 7 days ZOFRAN ODT 8 MG ORAL TABLET DISINTEGRATING (ONDANSETRON) 1 tab PO q12 hours prn nausea Current Allergies (reviewed today): No known allergies Laboratory Results Routine Urinalysis Leukocytes: negative Nitrite: negative Urobilinogen: negative Protein: negative Blood: negative Ketone: negative Bilirubin: negative Glucose: negative Urine HCG: positive Review of Systems General Denies fever, chills, sweats, anorexia, fatigue, weakness, malaise, weight loss and sleep disorder. Denies nausea, vomiting, headache, swelling of legs, abdominal pain, vaginal discharge, vaginal bleeding and contractions. Denies vaginal discharge, incontinence, dysuria, hematuria, urinary frequency, amenorrhea, menorrhagia, abnormal vaginal bleeding, pelvic pain, genital sores, decreased libido, painful periods, painful sex, urinary urgency, hot flashes, vaginal dryness, vaginal itching and vaginal odor. CV Denies chest pains, palpitations, syncope, dyspnea on exertion, orthopnea, PND and peripheral edema. Resp Denies cough, dyspnea at rest, excessive sputum, hemoptysis, wheezing and pleurisy. GI Denies nausea, vomiting, diarrhea, constipation, change in bowel habits, abdominal pain, melena, hematochezia, jaundice, gas/bloating, indigestion/ heartburn, dysphagia and odynophagia. Endo Denies cold intolerance, heat intolerance, polydipsia, polyphagia, polyuria and unusual weight change. Breast Denies left breast lump, right breast lump, nipple discharge, bloody discharge from nipple, breast pain, abnormal mammogram and breast enlargement. MS Denies back pain, joint pain, joint swelling, muscle cramps, muscle weakness, stiffness, arthritis, sciatica, restless legs, leg pain at night and leg pain with exertion. Derm Denies rash, itching, dryness and suspicious lesions. Neuro Denies paralysis, paresthesias, headache, seizures, tremors, vertigo, transient blindness, frequent falls, frequent headaches and difficulty walking. Psych Denies depression, anxiety, irritability and mood swings. Eyes Denies blurring, diplopia, irritation, discharge, vision loss, eye pain and photophobia. ENT Denies earache, ear discharge, tinnitus, decreased hearing, nasal congestion, nosebleeds, sore throat and hoarseness. Allergy Denies urticaria, allergic rash, hay fever and recurrent infections. Heme Denies abnormal bruising, bleeding and enlarged lymph nodes. Patient reports: new complaints, movement normal, other (coughing; diminished breath sounds LL right side), no loss of fluid, no vaginal bleeding, no contractions Objective - Vital Signs Vital Signs: Vital Signs - 12hr 02/24/18 02/24/18 02/24/18 18:35 18:37 19:35 Temperature 97.3 F L Pulse Rate 66 66 51 L Respiratory 20 Rate Blood Pressure 143/77 173/80 Blood Pressure 143/77 [Right] O2 Sat by Pulse Oximetry 02/24/18 02/24/18 02/24/18 19:57 19:59 22:19 Temperature Pulse Rate 54 L 61 53 L Respiratory Rate Blood Pressure 176/84 154/89 190/86 Blood Pressure [Right] O2 Sat by Pulse Oximetry 02/24/18 02/24/18 02/24/18 22:20 22:22 22:27 Temperature Pulse Rate 48 L 49 L 53 L Respiratory Rate Blood Pressure 154/80 Blood Pressure [Right] O2 Sat by Pulse 95 98 Oximetry 02/24/18 02/24/18 02/24/18 22:28 22:32 22:34 Temperature Pulse Rate 60 59 L 54 L Respiratory Rate Blood Pressure Blood Pressure [Right] O2 Sat by Pulse 93 96 94 Oximetry 02/24/18 02/24/18 02/24/18 22:35 22:37 22:42 Temperature Pulse Rate 51 L 55 L 54 L Respiratory Rate Blood Pressure 171/82 Blood Pressure [Right] O2 Sat by Pulse 93 94 Oximetry 02/24/18 02/24/18 02/24/18 22:43 22:47 22:51 Temperature Pulse Rate 54 L 53 L 51 L Respiratory Rate Blood Pressure Blood Pressure [Right] O2 Sat by Pulse 93 94 94 Oximetry 02/24/18 02/24/18 02/24/18 22:52 22:57 23:02 Temperature Pulse Rate 67 52 L 53 L Respiratory Rate Blood Pressure Blood Pressure [Right] O2 Sat by Pulse 94 93 93 Oximetry 02/24/18 02/24/18 02/24/18 23:03 23:07 23:09 Temperature Pulse Rate 51 L 62 55 L Respiratory Rate Blood Pressure Blood Pressure [Right] O2 Sat by Pulse 94 97 94 Oximetry 02/24/18 02/24/18 02/24/18 23:12 23:15 23:17 Temperature Pulse Rate 57 L 53 L 53 L Respiratory Rate Blood Pressure Blood Pressure [Right] O2 Sat by Pulse 98 93 95 Oximetry 02/24/18 02/24/18 02/25/18 23:22 23:35 00:40 Temperature Pulse Rate 49 L 52 L 52 L Respiratory Rate Blood Pressure 187/88 Blood Pressure [Right] O2 Sat by Pulse 96 99 Oximetry 02/25/18 02/25/18 02/25/18 00:45 00:50 00:55 Temperature Pulse Rate 49 L 51 L 58 L Respiratory Rate Blood Pressure Blood Pressure [Right] O2 Sat by Pulse 98 95 97 Oximetry 02/25/18 02/25/18 02/25/18 00:57 01:00 01:05 Temperature Pulse Rate 57 L 57 L 53 L Respiratory Rate Blood Pressure Blood Pressure [Right] O2 Sat by Pulse 94 93 94 Oximetry 02/25/18 02/25/18 02/25/18 01:10 01:15 01:35 Temperature Pulse Rate 53 L 50 L 51 L Respiratory Rate Blood Pressure 194/100 Blood Pressure [Right] O2 Sat by Pulse 93 93 Oximetry 02/25/18 02/25/18 02/25/18 01:38 01:42 01:47 Temperature Pulse Rate 49 L 49 L 51 L Respiratory Rate Blood Pressure 171/84 171/84 171/86 Blood Pressure [Right] O2 Sat by Pulse Oximetry 02/25/18 02/25/18 02/25/18 01:49 02:24 02:35 Temperature Pulse Rate 64 93 H 71 Respiratory Rate Blood Pressure 165/83 128/68 Blood Pressure [Right] O2 Sat by Pulse 94 Oximetry 02/25/18 06:22 Temperature Pulse Rate 89 Respiratory Rate Blood Pressure 175/91 Blood Pressure [Right] O2 Sat by Pulse Oximetry - Exam Breasts: deferred Cardiovascular: Regular rate Lungs: Other (as noted wheezing and diminished breath sounds) Abdomen: Present: normal appearance, soft, normal bowel sounds Uterus: Present: normal FHR: category 1 Uterine Contraction Monitor Mode: External Uterine Contraction Pattern: Regular Extremities: edema Deep Tendon Reflex Grade: Normal but brisk +3 - Labs Labs: Abnormal Labs 02/21/18 02/21/18 02/21/18 11:52 17:05 17:50 WBC RDW Seg Neuts % (Manual) Seg Neutrophils # Man Carbon Dioxide Creatinine Glucose Calcium Magnesium 4.30 H Lactate Dehydrogenase 182 H Urine WBC (Auto) 7.0 H Ur Total Protein 24 Hr Urine Total Protein 02/22/18 02/22/18 02/22/18 00:45 05:45 11:08 WBC RDW Seg Neuts % (Manual) Seg Neutrophils # Man Carbon Dioxide Creatinine Glucose Calcium Magnesium 5.10 H 5.90 H Lactate Dehydrogenase Urine WBC (Auto) Ur Total Protein 24 Hr 1105.00 H Urine Total Protein 85 H 02/22/18 02/22/18 02/24/18 12:07 21:51 13:40 WBC 11.6 H RDW 15.5 H Seg Neuts % (Manual) 74.0 H Seg Neutrophils # Man 8.6 H Carbon Dioxide Creatinine Glucose Calcium Magnesium 5.80 H 6.00 H Lactate Dehydrogenase Urine WBC (Auto) Ur Total Protein 24 Hr Urine Total Protein 02/24/18 18:25 WBC RDW Seg Neuts % (Manual) Seg Neutrophils # Man Carbon Dioxide 21 L Creatinine 0.6 L Glucose 108 H Calcium 7.5 L Magnesium Lactate Dehydrogenase Urine WBC (Auto) Ur Total Protein 24 Hr Urine Total Protein Laboratory Results - last 24 hr 02/24/18 02/24/18 02/24/18 13:40 13:40 18:25 WBC 11.6 H RBC 3.65 Hgb 10.6 Hct 31.6 MCV 87 MCH 29 MCHC 33 RDW 15.5 H Plt Count 215 Add Manual Diff Complete Total Counted 100 Seg Neuts % (Manual) 74.0 H Band Neutrophils % 0 Lymphocytes % (Manual) 20.0 Reactive Lymphs % (Man) 0 Monocytes % (Manual) 5.0 Eosinophils % (Manual) 1.0 Basophils % (Manual) 0 Metamyelocytes % 0 Myelocytes % 0 Promyelocytes % 0 Blast Cells % 0 Nucleated RBC % Not Reportable Seg Neutrophils # Man 8.6 H Band Neutrophils # 0.0 Lymphocytes # (Manual) 2.3 Abs React Lymphs (Man) 0.0 Monocytes # (Manual) 0.6 Eosinophils # (Manual) 0.1 Basophils # (Manual) 0.0 Metamyelocytes # 0.0 Myelocytes # 0.0 Promyelocytes # 0.0 Blast Cells # 0.0 WBC Morphology Not Reportable Hypersegmented Neuts Not Reportable Hyposegmented Neuts Not Reportable Hypogranular Neuts Not Reportable Smudge Cells Not Reportable Toxic Granulation Not Reportable Toxic Vacuolation Not Reportable Dohle Bodies Not Reportable Pelger-Huet Anomaly Not Reportable Dominic Rods Not Reportable Platelet Estimate Consistent w auto Clumped Platelets Not Reportable Plt Clumps, EDTA Not Reportable Large Platelets Not Reportable Giant Platelets Not Reportable Platelet Satelliting Not Reportable Plt Morphology Comment Not Reportable RBC Morphology Not Reportable Dimorphic RBCs Not Reportable Polychromasia Not Reportable Hypochromasia Not Reportable Poikilocytosis Not Reportable Anisocytosis 1+ Microcytosis Not Reportable Macrocytosis Not Reportable Spherocytes Not Reportable Pappenheimer Bodies Not Reportable Sickle Cells Not Reportable Target Cells Not Reportable Tear Drop Cells Not Reportable Ovalocytes Not Reportable Helmet Cells Not Reportable [place] Bodies Not Reportable Haynes Rings Not Reportable [place] Cells Not Reportable Bite Cells Not Reportable Crenated Cell Not Reportable Elliptocytes Not Reportable Acanthocytes (Spur) Not Reportable Rouleaux Not Reportable Hemoglobin C Crystals Not Reportable Schistocytes Not Reportable Malaria parasites Not Reportable Abe Bodies Not Reportable Hem Pathologist Commnt No Sodium 138 Potassium 4.2 Chloride 104.0 Carbon Dioxide 21 L Anion Gap 17 BUN 15 Creatinine 0.6 L Estimated GFR > 60 BUN/Creatinine Ratio 25 Glucose 108 H Calcium 7.5 L AST 18 ALT 10
--- NOTE | 2018-02-25 07:21 | XRay Report ---
FINAL REPORT EXAM: XR CHEST 1V AP HISTORY: cough; bedrest; hx of PE TECHNIQUE: AP portable view(s) of the chest obtained. PRIORS: None. FINDINGS: Patient is rotated. No mediastinal shift. Cardiac silhouette is not enlarged. No pneumothorax, effusion, or focal pulmonary opacity identified. No acute skeletal findings. IMPRESSION: No acute pulmonary finding identified.
[2018-02-25] MEDS: TYLENOL PO PRN ×2 (07:55→22:12)
[2018-02-25] MEDS: HEPARIN SUB-Q SCH ×2 (10:47→21:54)
[2018-02-25] MEDS: PRENATAL VITAMIN PO SCH (10:51)
[2018-02-25] MEDS ORDERED: PROVENTIL IH PRN (21:59)
--- NOTE | 2018-02-25 21:59 | Event Note ---
Date: 02/25/18 (pt very noncompliant; "I just want to go home.") Explained to pt that my MDs and the MDs of [facility] feel she needs to have care in house until delivery. Her BPs are not stable, she has swelling, and unexplained cough, and her baby is IUGR. Pt is requesting a breathing tx Ordered. Pt has agreed to stay, SCDs replaced. NST then FM off for sleep will repeat NST in the AM BPP ordered for tomorrow as recommended by [facility]. All questions addressed consulted.
[2018-02-26] MEDS: TYLENOL PO PRN ×2 (05:53→18:30)
[2018-02-26] MEDS: APRESOLINE IV PRN (05:59)
--- NOTE | 2018-02-26 07:19 | Progress Note ---
Assessment and Plan 1. IUP @ 27w0d - overall reassuring status 2. Preeclampsia - severe by BPs - continue inpatient expectant management - CBC and CMP every 2 to 3 days (last drawn 02/24/18, ordered today 02/26/18) - twice weekly BPP starting at 27 weeks (Ordered today 02/26/18) - delivery no later than 34 weeks (sooner if indicated) 3. IUGR - twice weekly BPP with dopplers (ordered today 02/26/18 & 03/01/18) - growth scans q 2 weeks (next due 03/01/18) 4. Incompetent Cervix - abdominal cerclage in place - will require delivery 5. Factor V Leiden Mutation - continue Heparin 5000 units SQ BID - Patient Problems (1) Asymmetric IUGR affecting , antepartum Onset Date: ~02/21/18 Current Visit: Yes Status: Acute (2) Factor 5 Leiden mutation, heterozygous Onset Date: ~02/21/18 Current Visit: Yes Status: Chronic (3) History of pulmonary embolus (PE) Onset Date: ~02/21/18 Current Visit: Yes Status: Chronic (4) Shirodkar cerclage present, antepartum Onset Date: ~02/21/18 Current Visit: Yes Status: Chronic (5) Pre-eclampsia Current Visit: Yes Status: Acute Qualifiers: Trimester: third trimester Qualified Code(s): O14.93 - Unspecified pre- eclampsia, third trimester (6) 27 weeks gestation of Current Visit: Yes Status: Acute Subjective - Subjective Date of service: 02/26/18 ([employer] Consultant note) Principal diagnosis: IUP 27+0; severe Pre-e, H/O DVT, abdominal cerclage Patient reports: new complaints, movement normal, other (coughing - improved will get ISS. edema in hands and BLE.), no loss of fluid, no vaginal bleeding, no contractions Objective - Vital Signs Vital Signs: Vital Signs - 12hr 02/25/18 02/25/18 02/25/18 19:43 19:46 20:22 Pulse Rate 58 L 58 L 84 Respiratory Rate Respiratory Rate [Anterior Bilateral Throughout] Blood Pressure 205/98 205/98 161/82 O2 Sat by Pulse Oximetry 02/25/18 02/25/18 02/25/18 21:12 21:16 21:17 Pulse Rate 99 H 96 H 91 H Respiratory Rate Respiratory Rate [Anterior Bilateral Throughout] Blood Pressure O2 Sat by Pulse 97 94 95 Oximetry 02/25/18 02/25/18 02/25/18 21:22 21:27 21:32 Pulse Rate 109 H 111 H 103 H Respiratory Rate Respiratory Rate [Anterior Bilateral Throughout] Blood Pressure O2 Sat by Pulse 97 97 96 Oximetry 02/25/18 02/25/18 02/25/18 21:35 22:12 22:28 Pulse Rate 96 H Respiratory 20 Rate Respiratory 20 Rate [Anterior Bilateral Throughout] Blood Pressure 122/72 O2 Sat by Pulse 92 Oximetry 02/25/18 02/26/18 02/26/18 23:45 01:56 05:57 Pulse Rate 73 76 64 Respiratory Rate Respiratory Rate [Anterior Bilateral Throughout] Blood Pressure 160/84 143/75 194/92 O2 Sat by Pulse Oximetry 02/26/18 02/26/18 02/26/18 05:59 06:00 06:03 Pulse Rate 63 61 63 Respiratory Rate Respiratory Rate [Anterior Bilateral Throughout] Blood Pressure 174/87 180/83 174/87 O2 Sat by Pulse Oximetry 02/26/18 06:35 Pulse Rate 73 Respiratory Rate Respiratory Rate [Anterior Bilateral Throughout] Blood Pressure 143/70 O2 Sat by Pulse Oximetry - Exam Breasts: normal Cardiovascular: Regular rate Lungs: Clear to auscultation, Normal air movement Abdomen: Present: normal appearance, soft Uterus: Present: normal FHR: auscultation normal, category 1 Uterine Contraction Monitor Mode: External Uterine Contraction Frequency (min): none Uterine Contraction Pattern: Absent Uterine Tone Measurement Phase: Resting Uterine Contraction Intensity: Mild Extremities: edema (1+ edema in hands and wrists, 2+ BLE.) Deep Tendon Reflex Grade: Normal +2 - Labs Labs: Abnormal Labs 02/21/18 02/21/18 02/21/18 11:52 17:05 17:50 WBC RDW Seg Neuts % (Manual) Seg Neutrophils # Man Carbon Dioxide Creatinine Glucose Calcium Magnesium 4.30 H Lactate Dehydrogenase 182 H Urine WBC (Auto) 7.0 H Ur Total Protein 24 Hr Urine Total Protein 02/22/18 02/22/18 02/22/18 00:45 05:45 11:08 WBC RDW Seg Neuts % (Manual) Seg Neutrophils # Man Carbon Dioxide Creatinine Glucose Calcium Magnesium 5.10 H 5.90 H Lactate Dehydrogenase Urine WBC (Auto) Ur Total Protein 24 Hr 1105.00 H Urine Total Protein 85 H 02/22/18 02/22/18 02/24/18 12:07 21:51 13:40 WBC 11.6 H RDW 15.5 H Seg Neuts % (Manual) 74.0 H Seg Neutrophils # Man 8.6 H Carbon Dioxide Creatinine Glucose Calcium Magnesium 5.80 H 6.00 H Lactate Dehydrogenase Urine WBC (Auto) Ur Total Protein 24 Hr Urine Total Protein 02/24/18 18:25 WBC RDW Seg Neuts % (Manual) Seg Neutrophils # Man Carbon Dioxide 21 L Creatinine 0.6 L Glucose 108 H Calcium 7.5 L Magnesium Lactate Dehydrogenase Urine WBC (Auto) Ur Total Protein 24 Hr Urine Total Protein
--- NOTE | 2018-02-26 08:18 | Ultrasound Report ---
ULTRASOUND BIOPHYSICAL PROFILE: History: well being Technique: Transabdominal ultrasound with Doppler interrogation. 2 - breathing movements 2 - movements 2 - posture and tone 2 - Qualitative amniotic fluid volume 8 - TOTAL SCORE OF POSSIBLE 8 Heart Rate (bpm) 178
[2018-02-26] MEDS ORDERED: NORCO 5/325 PO NR (08:38)
--- NOTE | 2018-02-26 08:42 | Event Note ---
Date: 02/26/18 received call from RN that patient was crying from DYE unrelieved by dose of tylenol. She is requesting additional medication for DYE pain. One time dose of norco ordered. b/p 130's/70's after dose of hydralizine this morning.
[2018-02-26] MEDS: PRENATAL VITAMIN PO SCH (11:17)
[2018-02-26] MEDS: HEPARIN SUB-Q SCH (11:19)
--- NOTE | 2018-02-26 12:01 | Progress Note ---
Assessment and Plan A: 1. IUP at 27 0/7 weeks gestation 2. Preeclampsia - with severe features - pt advised to notify the nurse if her DYE does not resolve, or if she develops visual changes, CP, RUQ pain - CBC, CMP ordered for 02/27 - delivery is recommended no later than 34 weeks gestation, however a sooner delivery is recommended for worsening maternal status, NRFHT, uncontrolled HTN 3. IUGR BPP was 8 but dopplers were not performed please reorder Continue twice weekly BPP with dopplers - growth scans q 2 weeks (next due 03/01/18) 4. Incompetent Cervix - abdominal cerclage in place - will require delivery 5. Factor V Leiden Mutation - continue Heparin 5000 units SQ BID Subjective - Subjective Principal diagnosis: IUP 270/7; severe Pre-e, H/O DVT, abdominal cerclage Interval history: She received Hydralazine earlier this morning secondary to severe range BP She has a DYE and reports that it is down to a 6/10 from 1010 after receiving Hydrocodone Denied visual changes, Cp, RUQ pain, bleeding or LOF Good movement noted Patient reports: new complaints, movement normal, other, no loss of fluid , no vaginal bleeding, no contractions Objective - Vital Signs Vital Signs: Vital Signs - 12hr 02/26/18 02/26/18 02/26/18 01:56 05:57 05:59 Temperature Pulse Rate 76 64 63 Respiratory Rate Blood Pressure 143/75 194/92 174/87 Blood Pressure [Right] 02/26/18 02/26/18 02/26/18 06:00 06:03 06:35 Temperature Pulse Rate 61 63 73 Respiratory Rate Blood Pressure 180/83 174/87 143/70 Blood Pressure [Right] 02/26/18 02/26/18 02/26/18 07:35 08:20 08:35 Temperature 98.3 F Pulse Rate 76 76 74 Respiratory 16 Rate Blood Pressure 137/72 139/72 Blood Pressure 137/72 [Right] 02/26/18 02/26/18 10:36 11:35 Temperature Pulse Rate 78 76 Respiratory Rate Blood Pressure 146/76 145/79 Blood Pressure [Right] - Exam Narrative Exam: laying in bed appears sleepy Abdomen: Present: soft (gravid, non tender) FHR: auscultation normal (tracing discontinous , monitor readjusted), other Uterine Contraction Monitor Mode: External Uterine Contraction Pattern: Absent - Labs Labs: Abnormal Labs 02/21/18 02/21/18 02/21/18 11:52 17:05 17:50 WBC RDW Seg Neuts % (Manual) Seg Neutrophils # Man Carbon Dioxide Creatinine Glucose Calcium Magnesium 4.30 H Lactate Dehydrogenase 182 H Urine WBC (Auto) 7.0 H Ur Total Protein 24 Hr Urine Total Protein 02/22/18 02/22/18 02/22/18 00:45 05:45 11:08 WBC RDW Seg Neuts % (Manual) Seg Neutrophils # Man Carbon Dioxide Creatinine Glucose Calcium Magnesium 5.10 H 5.90 H Lactate Dehydrogenase Urine WBC (Auto) Ur Total Protein 24 Hr 1105.00 H Urine Total Protein 85 H 02/22/18 02/22/18 02/24/18 12:07 21:51 13:40 WBC 11.6 H RDW 15.5 H Seg Neuts % (Manual) 74.0 H Seg Neutrophils # Man 8.6 H Carbon Dioxide Creatinine Glucose Calcium Magnesium 5.80 H 6.00 H Lactate Dehydrogenase Urine WBC (Auto) Ur Total Protein 24 Hr Urine Total Protein 02/24/18 18:25 WBC RDW Seg Neuts % (Manual) Seg Neutrophils # Man Carbon Dioxide 21 L Creatinine 0.6 L Glucose 108 H Calcium 7.5 L Magnesium Lactate Dehydrogenase Urine WBC (Auto) Ur Total Protein 24 Hr Urine Total Protein
--- NOTE | 2018-02-26 14:22 | Progress Note ---
Assessment and Plan 1. IUP at 27 0/7 weeks gestation 2. Preeclampsia - with severe features BP's labile, not persistently elevated will start Procardia to stabilize BP to prevent large swings - pt advised to notify the nurse if her DYE does not resolve, or if she develops visual changes, CP, RUQ pain - CBC, CMP ordered for 02/27 - delivery is recommended no later than 34 weeks gestation, however a sooner delivery is recommended for worsening maternal status, NRFHT, uncontrolled HTN 3. IUGR BPP was 07/03 Doppler results pending Continue twice weekly BPP with dopplers - growth scans q 2 weeks (next due 03/01/18) 4. Incompetent Cervix - abdominal cerclage in place - will require delivery 5. Factor V Leiden Mutation - continue Heparin 5000 units SQ BID 6. Sterilization she desires permanent sterilization at time of C/S: Risks of regret emphasized. Permanent and irreversible condition explained to patient. Pt verbalized understanding. Patient given ample opportunity to have all her questions answered Patient informed of possible bleeding. 1%failure rate emphasized. Patient given consents to review and sign. - Patient Problems (1) 27 weeks gestation of Current Visit: Yes Status: Acute (2) Pre-eclampsia Current Visit: Yes Status: Acute Qualifiers: Trimester: third trimester Qualified Code(s): O14.93 - Unspecified pre- eclampsia, third trimester (3) Asymmetric IUGR affecting , antepartum Onset Date: ~02/21/18 Current Visit: Yes Status: Chronic (4) Factor 5 Leiden mutation, heterozygous Onset Date: ~02/21/18 Current Visit: Yes Status: Chronic (5) History of pulmonary embolus (PE) Onset Date: ~02/21/18 Current Visit: Yes Status: Chronic (6) Sterilization Current Visit: Yes Status: Acute (7) Shirodkar cerclage present, antepartum Onset Date: ~02/21/18 Current Visit: Yes Status: Chronic Subjective - Subjective Date of service: 02/26/18 Principal diagnosis: IUP 27 0/7; severe Pre-e, H/O DVT, abdominal cerclage Interval history: Resting in bed with visitors present. Patient reports: new complaints, movement normal, other (DYE resolved after norco. No other complaints, ), no loss of fluid, no vaginal bleeding, no contractions Objective - Vital Signs Vital Signs: Vital Signs - 12hr 02/26/18 02/26/18 02/26/18 05:57 05:59 06:00 Temperature Pulse Rate 64 63 61 Respiratory Rate Blood Pressure 194/92 174/87 180/83 Blood Pressure [Right] O2 Sat by Pulse Oximetry 02/26/18 02/26/18 02/26/18 06:03 06:35 07:35 Temperature Pulse Rate 63 73 76 Respiratory Rate Blood Pressure 174/87 143/70 137/72 Blood Pressure [Right] O2 Sat by Pulse Oximetry 02/26/18 02/26/18 02/26/18 08:20 08:35 10:36 Temperature 98.3 F Pulse Rate 76 74 78 Respiratory 16 Rate Blood Pressure 139/72 146/76 Blood Pressure 137/72 [Right] O2 Sat by Pulse Oximetry 02/26/18 02/26/18 02/26/18 11:35 12:35 12:58 Temperature Pulse Rate 76 85 89 Respiratory Rate Blood Pressure 145/79 151/73 Blood Pressure [Right] O2 Sat by Pulse 95 Oximetry 02/26/18 02/26/18 02/26/18 13:03 13:08 13:13 Temperature Pulse Rate 85 87 95 H Respiratory Rate Blood Pressure Blood Pressure [Right] O2 Sat by Pulse 95 95 96 Oximetry 02/26/18 13:35 Temperature Pulse Rate 85 Respiratory Rate Blood Pressure 150/73 Blood Pressure [Right] O2 Sat by Pulse Oximetry - Exam Breasts: deferred Cardiovascular: Regular rate Lungs: Clear to auscultation, Normal air movement Abdomen: Present: normal appearance, soft. Absent: tenderness Uterus: Absent: tenderness FHR: other (160's) Uterine Contraction Monitor Mode: External Extremities: edema (2+) Deep Tendon Reflex Grade: Normal +2 - Labs Labs: Abnormal Labs 02/21/18 02/21/18 02/21/18 11:52 17:05 17:50 WBC RDW Seg Neuts % (Manual) Seg Neutrophils # Man Carbon Dioxide Creatinine Glucose Calcium Magnesium 4.30 H Lactate Dehydrogenase 182 H Urine WBC (Auto) 7.0 H Ur Total Protein 24 Hr Urine Total Protein 02/22/18 02/22/18 02/22/18 00:45 05:45 11:08 WBC RDW Seg Neuts % (Manual) Seg Neutrophils # Man Carbon Dioxide Creatinine Glucose Calcium Magnesium 5.10 H 5.90 H Lactate Dehydrogenase Urine WBC (Auto) Ur Total Protein 24 Hr 1105.00 H Urine Total Protein 85 H 02/22/18 02/22/18 02/24/18 12:07 21:51 13:40 WBC 11.6 H RDW 15.5 H Seg Neuts % (Manual) 74.0 H Seg Neutrophils # Man 8.6 H Carbon Dioxide Creatinine Glucose Calcium Magnesium 5.80 H 6.00 H Lactate Dehydrogenase Urine WBC (Auto) Ur Total Protein 24 Hr Urine Total Protein 02/24/18 18:25 WBC RDW Seg Neuts % (Manual) Seg Neutrophils # Man Carbon Dioxide 21 L Creatinine 0.6 L Glucose 108 H Calcium 7.5 L Magnesium Lactate Dehydrogenase Urine WBC (Auto) Ur Total Protein 24 Hr Urine Total Protein
--- NOTE | 2018-02-26 14:33 | Ultrasound Report ---
ULTRASOUND OB VELOCIMETRY UMBILICAL ARTERY HISTORY: well being. TECHNIQUE: Transabdominal ultrasound. Spectral Doppler interrogation was performed on 3 segments of the umbilical cord. FINDINGS: heart rate measures 155 beats per minute. The spectral waveforms are normal and persistent. No evidence for loss or reversal of end-diastolic flow. The resistive index average measures 0.73. The systolic/diastolic ratio average measures 3.6. IMPRESSION: Mildly elevated resistive indices.
[2018-02-26] MEDS: PROCARDIA XL PO SCH ×2 (15:16→22:05)
[2018-02-26] MEDS ORDERED: APRESOLINE IV ONE (20:00)
[2018-02-26] MEDS ORDERED: NORMODYNE IV ONE (20:50)
[2018-02-26 21:07] LABS: Hematocrit 35.6 % (30.3-42.9); Mean Corpuscular HGB Conc 34 % (30-34); Mean Corpuscular Hemoglobin 29 pg (28-32); Mean Corpuscular Volume 85 fl (79-97); Platelet Count 241 K/mm3 (140-440); Red Blood Count 4.18 M/mm3 (3.65-5.03); Red Cell Distribution Width 15.1 % (13.2-15.2)
[2018-02-26 21:20] LABS: Alanine Aminotransferase 43 units/L (7-56); Albumin 2.7 g/dL (3.9-5); BUN/Creatinine Ratio 20; Blood Urea Nitrogen 12 mg/dL (7-17); Calcium 8.7 mg/dL (8.4-10.2); Hemolysis Index 15
[2018-02-26] MEDS ORDERED: MORPHINE IV ONE (21:32)
[2018-02-27] MEDS ORDERED: NORCO 5/325 PO ONE (01:00)
[2018-02-27 05:28] LABS: Hematocrit 34.9 % (30.3-42.9); Hemoglobin 11.9 gm/dl (10.1-14.3); Mean Corpuscular HGB Conc 34 % (30-34); Mean Corpuscular Hemoglobin 29 pg (28-32); Mean Corpuscular Volume 85 fl (79-97); Platelet Count 227 K/mm3 (140-440); Red Blood Count 4.09 M/mm3 (3.65-5.03); Red Cell Distribution Width 15.2 % (13.2-15.2)
[2018-02-27 06:00] LABS: Alanine Aminotransferase 37 units/L (7-56)
--- NOTE | 2018-02-27 08:06 | Progress Note ---
Assessment and Plan 1. IUP @ 27w1d - overall reassuring status 2. Preeclampsia - severe by BPs - continue inpatient expectant management - CBC and CMP every 2 to 3 days (last drawn 02/27/18, ordered 03/01/18) - twice weekly BPP starting at 27 weeks (Ordered 03/01/18) - delivery no later than 34 weeks (sooner if indicated) 3. IUGR - twice weekly BPP with dopplers (ordered 03/01/18) - growth scans q 2 weeks (next due 03/01/18) 4. Incompetent Cervix - abdominal cerclage in place - will require delivery 5. Factor V Leiden Mutation - continue Heparin 5000 units SQ BID - Patient Problems (1) Asymmetric IUGR affecting , antepartum Onset Date: ~02/21/18 Current Visit: Yes Status: Chronic (2) Factor 5 Leiden mutation, heterozygous Onset Date: ~02/21/18 Current Visit: Yes Status: Chronic (3) History of pulmonary embolus (PE) Onset Date: ~02/21/18 Current Visit: Yes Status: Chronic (4) Shirodkar cerclage present, antepartum Onset Date: ~02/21/18 Current Visit: Yes Status: Chronic (5) Pre-eclampsia Current Visit: Yes Status: Acute Qualifiers: Trimester: third trimester Qualified Code(s): O14.93 - Unspecified pre- eclampsia, third trimester (6) 27 weeks gestation of Current Visit: Yes Status: Acute Subjective - Subjective Date of service: 02/27/18 (Key Entry Operator note) Principal diagnosis: IUP 27 12/02; severe Pre-e, H/O DVT, abdominal cerclage Patient reports: movement normal, other (DYE), no loss of fluid, no vaginal bleeding, no contractions Objective - Vital Signs Vital Signs: Vital Signs - 12hr 02/26/18 02/26/18 02/26/18 20:18 20:53 20:56 Pulse Rate 76 101 H 102 H Respiratory Rate Blood Pressure 178/87 185/91 185/91 O2 Sat by Pulse 97 Oximetry 02/26/18 02/26/18 02/26/18 20:58 21:03 21:08 Pulse Rate 106 H 98 H 98 H Respiratory Rate Blood Pressure O2 Sat by Pulse 96 97 97 Oximetry 02/26/18 02/26/18 02/26/18 21:12 21:13 21:26 Pulse Rate 93 H 93 H 91 H Respiratory Rate Blood Pressure 174/95 O2 Sat by Pulse 96 94 Oximetry 02/26/18 02/26/18 02/26/18 21:31 21:32 21:33 Pulse Rate 89 88 90 Respiratory Rate Blood Pressure 142/74 O2 Sat by Pulse 95 94 Oximetry 02/26/18 02/26/18 02/26/18 21:36 21:39 21:41 Pulse Rate 87 85 92 H Respiratory Rate Blood Pressure O2 Sat by Pulse 94 94 94 Oximetry 02/26/18 02/26/18 02/26/18 21:46 21:51 21:52 Pulse Rate 87 91 H 92 H Respiratory Rate Blood Pressure 155/84 O2 Sat by Pulse 95 96 Oximetry 02/26/18 02/26/18 02/26/18 21:56 21:59 22:01 Pulse Rate 90 87 95 H Respiratory Rate Blood Pressure O2 Sat by Pulse 96 94 95 Oximetry 02/26/18 02/26/18 04 22:05 22:14 22:17 Pulse Rate 81 86 Respiratory 18 Rate Blood Pressure 134/73 O2 Sat by Pulse 96 94 Oximetry 02/26/18 02/26/18 04 22:19 22:22 22:24 Pulse Rate 85 82 84 Respiratory Rate Blood Pressure O2 Sat by Pulse 95 94 94 Oximetry 02/26/18 02/26/18 04 22:28 22:29 22:34 Pulse Rate 86 88 83 Respiratory Rate Blood Pressure 137/77 O2 Sat by Pulse 94 94 94 Oximetry 02/26/18 02/26/18 02/26/18 22:37 22:39 22:44 Pulse Rate 86 87 88 Respiratory Rate Blood Pressure O2 Sat by Pulse 94 94 92 Oximetry 02/26/18 02/26/18 04 22:49 22:54 22:59 Pulse Rate 85 86 88 Respiratory Rate Blood Pressure 133/73 O2 Sat by Pulse 93 92 92 Oximetry 02/26/18 02/26/18 0418 23:04 23:09 23:14 Pulse Rate 84 85 91 H Respiratory Rate Blood Pressure 124/67 O2 Sat by Pulse 93 93 94 Oximetry 02/26/18 02/26/18 04 23:19 23:24 23:29 Pulse Rate 85 85 88 Respiratory Rate Blood Pressure O2 Sat by Pulse 93 93 93 Oximetry 02/26/18 02/26/18 02/26/18 23:34 23:39 23:44 Pulse Rate 90 102 H 87 Respiratory Rate Blood Pressure 119/64 O2 Sat by Pulse 93 94 92 Oximetry 02/26/18 02/26/18 02/26/18 23:45 23:49 23:54 Pulse Rate 100 H 87 86 Respiratory Rate Blood Pressure 119/66 O2 Sat by Pulse 0 L 94 93 Oximetry 02/26/18 02/27/18 02/27/18 23:59 00:02 00:04 Pulse Rate 83 95 H 88 Respiratory Rate Blood Pressure O2 Sat by Pulse 93 94 94 Oximetry 02/27/18 02/27/18 02/27/18 00:08 00:09 00:14 Pulse Rate 92 H 90 93 H Respiratory Rate Blood Pressure 121/68 O2 Sat by Pulse 94 94 94 Oximetry 02/27/18 02/27/18 02/27/18 00:15 00:19 00:21 Pulse Rate 84 88 91 H Respiratory Rate Blood Pressure O2 Sat by Pulse 94 94 94 Oximetry 02/27/18 02/27/18 02/27/18 00:24 00:29 00:34 Pulse Rate 84 83 83 Respiratory Rate Blood Pressure 129/68 O2 Sat by Pulse 94 94 94 Oximetry 02/27/18 02/27/18 02/27/18 00:39 00:44 00:56 Pulse Rate 100 H 101 H 107 H Respiratory Rate Blood Pressure O2 Sat by Pulse 92 95 100 Oximetry 02/27/18 02/27/18 02/27/18 01:01 01:05 01:06 Pulse Rate 100 H 91 H 96 H Respiratory Rate Blood Pressure O2 Sat by Pulse 96 93 94 Oximetry 02/27/18 02/27/18 02/27/18 01:09 01:10 01:11 Pulse Rate 93 H 92 H Respiratory 16 Rate Blood Pressure O2 Sat by Pulse 94 95 Oximetry 02/27/18 02/27/18 02/27/18 01:14 01:16 01:17 Pulse Rate 93 H 95 H 98 H Respiratory Rate Blood Pressure 133/76 O2 Sat by Pulse 96 94 Oximetry 02/27/18 02/27/18 02/27/18 01:21 01:26 01:31 Pulse Rate 98 H 95 H 88 Respiratory Rate Blood Pressure O2 Sat by Pulse 94 96 96 Oximetry 02/27/18 02/27/18 02/27/18 01:34 01:36 01:41 Pulse Rate 93 H 94 H 88 Respiratory Rate Blood Pressure 138/71 O2 Sat by Pulse 96 95 Oximetry 02/27/18 02/27/18 02/27/18 01:43 01:46 01:48 Pulse Rate 92 H 89 89 Respiratory Rate Blood Pressure O2 Sat by Pulse 94 94 94 Oximetry 02/27/18 02/27/18 02/27/18 01:51 01:54 01:56 Pulse Rate 86 83 88 Respiratory Rate Blood Pressure 140/70 O2 Sat by Pulse 93 93 Oximetry 02/27/18 02/27/18 02/27/18 01:57 02:01 02:03 Pulse Rate 98 H 89 86 Respiratory Rate Blood Pressure O2 Sat by Pulse 94 94 94 Oximetry 02/27/18 02/27/18 02/27/18 02:06 02:11 02:14 Pulse Rate 85 92 H 85 Respiratory Rate Blood Pressure 136/78 O2 Sat by Pulse 93 93 Oximetry 02/27/18 02/27/18 02/27/18 02:16 02:21 02:26 Pulse Rate 85 83 89 Respiratory Rate Blood Pressure O2 Sat by Pulse 93 93 93 Oximetry 02/27/18 02/27/18 02/27/18 02:31 02:34 02:36 Pulse Rate 92 H 85 79 Respiratory Rate Blood Pressure 140/68 O2 Sat by Pulse 92 94 Oximetry 02/27/18 02/27/18 02/27/18 02:41 02:46 02:51 Pulse Rate 84 84 80 Respiratory Rate Blood Pressure O2 Sat by Pulse 93 93 92 Oximetry 02/27/18 02/27/18 02/27/18 02:54 02:56 03:01 Pulse Rate 81 84 82 Respiratory Rate Blood Pressure 148/70 O2 Sat by Pulse 94 94 Oximetry 02/27/18 02/27/18 02/27/18 03:06 03:11 03:14 Pulse Rate 83 85 87 Respiratory Rate Blood Pressure O2 Sat by Pulse 91 95 93 Oximetry 02/27/18 02/27/18 02/27/18 03:15 03:16 03:19 Pulse Rate 89 87 86 Respiratory Rate Blood Pressure 160/72 O2 Sat by Pulse 95 94 Oximetry 02/27/18 02/27/18 02/27/18 03:21 03:26 03:31 Pulse Rate 84 82 82 Respiratory Rate Blood Pressure O2 Sat by Pulse 94 95 93 Oximetry 02/27/18 02/27/18 02/27/18 03:34 03:36 03:38 Pulse Rate 87 82 84 Respiratory Rate Blood Pressure 155/70 O2 Sat by Pulse 95 94 Oximetry 02/27/18 02/27/18 02/27/18 03:41 03:43 03:46 Pulse Rate 79 82 82 Respiratory Rate Blood Pressure O2 Sat by Pulse 95 94 94 Oximetry 02/27/18 02/27/18 02/27/18 03:51 03:54 03:56 Pulse Rate 85 85 83 Respiratory Rate Blood Pressure 146/73 O2 Sat by Pulse 95 94 95 Oximetry 02/27/18 02/27/18 02/27/18 04:01 04:06 04:11 Pulse Rate 79 88 87 Respiratory Rate Blood Pressure O2 Sat by Pulse 95 96 94 Oximetry 02/27/18 02/27/18 02/27/18 04:14 04:16 04:21 Pulse Rate 88 93 H 83 Respiratory Rate Blood Pressure 146/72 O2 Sat by Pulse 95 94 Oximetry 02/27/18 02/27/18 02/27/18 04:26 04:28 04:31 Pulse Rate 90 86 89 Respiratory Rate Blood Pressure O2 Sat by Pulse 94 94 94 Oximetry 02/27/18 02/27/18 02/27/18 04:34 04:36 04:41 Pulse Rate 83 85 87 Respiratory Rate Blood Pressure 143/70 O2 Sat by Pulse 94 95 94 Oximetry 02/27/18 02/27/18 02/27/18 04:46 04:51 04:52 Pulse Rate 84 82 90 Respiratory Rate Blood Pressure O2 Sat by Pulse 94 95 94 Oximetry 02/27/18 02/27/18 02/27/18 04:54 04:56 04:59 Pulse Rate 83 87 84 Respiratory Rate Blood Pressure 146/70 O2 Sat by Pulse 94 94 Oximetry 02/27/18 02/27/18 02/27/18 05:01 05:05 05:06 Pulse Rate 87 98 H 100 H Respiratory Rate Blood Pressure O2 Sat by Pulse 94 94 93 Oximetry 02/27/18 02/27/18 02/27/18 05:11 05:12 05:14 Pulse Rate 99 H 93 H 90 Respiratory Rate Blood Pressure 142/75 O2 Sat by Pulse 94 94 Oximetry 02/27/18 02/27/18 02/27/18 05:16 05:21 05:22 Pulse Rate 88 90 82 Respiratory Rate Blood Pressure O2 Sat by Pulse 94 95 94 Oximetry 02/27/18 02/27/18 02/27/18 05:26 05:31 05:34 Pulse Rate 88 87 81 Respiratory Rate Blood Pressure 143/72 O2 Sat by Pulse 94 93 Oximetry 02/27/18 02/27/18 02/27/18 05:36 05:41 05:46 Pulse Rate 83 84 86 Respiratory Rate Blood Pressure O2 Sat by Pulse 94 94 93 Oximetry 02/27/18 02/27/18 02/27/18 05:51 05:54 05:56 Pulse Rate 84 95 H 89 Respiratory Rate Blood Pressure 154/85 O2 Sat by Pulse 94 94 Oximetry 02/27/18 02/27/18 02/27/18 06:01 06:06 06:11 Pulse Rate 82 75 83 Respiratory Rate Blood Pressure O2 Sat by Pulse 92 89 90 Oximetry 02/27/18 02/27/18 02/27/18 06:13 06:14 06:16 Pulse Rate 83 99 H Respiratory Rate Blood Pressure 142/72 O2 Sat by Pulse 94 95 Oximetry 02/27/18 02/27/18 02/27/18 06:21 06:26 06:31 Pulse Rate 78 92 H 85 Respiratory Rate Blood Pressure O2 Sat by Pulse 93 92 93 Oximetry 02/27/18 02/27/18 02/27/18 06:34 06:36 06:41 Pulse Rate 76 84 84 Respiratory Rate Blood Pressure 158/73 O2 Sat by Pulse 94 94 94 Oximetry 02/27/18 02/27/18 02/27/18 06:42 06:46 06:48 Pulse Rate 77 83 78 Respiratory Rate Blood Pressure O2 Sat by Pulse 94 94 94 Oximetry 02/27/18 02/27/18 02/27/18 06:51 06:54 06:55 Pulse Rate 79 81 75 Respiratory Rate Blood Pressure 143/76 O2 Sat by Pulse 95 94 Oximetry 02/27/18 02/27/18 02/27/18 06:56 07:01 07:02 Pulse Rate 85 77 83 Respiratory Rate Blood Pressure O2 Sat by Pulse 94 94 93 Oximetry 02/27/18 02/27/18 02/27/18 07:06 07:08 07:11 Pulse Rate 83 81 85 Respiratory Rate Blood Pressure O2 Sat by Pulse 94 94 94 Oximetry 02/27/18 02/27/18 02/27/18 07:14 07:16 07:21 Pulse Rate 88 79 80 Respiratory Rate Blood Pressure 146/73 O2 Sat by Pulse 91 92 Oximetry 02/27/18 02/27/18 02/27/18 07:26 07:31 07:34 Pulse Rate 81 77 80 Respiratory Rate Blood Pressure 148/75 O2 Sat by Pulse 92 90 Oximetry 02/27/18 02/27/18 02/27/18 07:36 07:41 07:46 Pulse Rate 81 73 79 Respiratory Rate Blood Pressure O2 Sat by Pulse 93 90 90 Oximetry 02/27/18 02/27/18 02/27/18 07:49 07:51 07:54 Pulse Rate 86 76 81 Respiratory Rate Blood Pressure 143/74 O2 Sat by Pulse 92 92 Oximetry 02/27/18 02/27/18 02/27/18 07:56 08:01 08:06 Pulse Rate 83 78 81 Respiratory Rate Blood Pressure O2 Sat by Pulse 92 87 88 Oximetry - Exam Breasts: normal Cardiovascular: Regular rate Lungs: Clear to auscultation, Normal air movement Abdomen: Present: normal appearance, soft Uterus: Present: normal FHR: auscultation normal, category 1 Uterine Contraction Monitor Mode: External Uterine Contraction Frequency (min): none Uterine Tone Measurement Phase: Resting Extremities: edema (2+ bilateral hand and LE) Deep Tendon Reflex Grade: Normal +2 - Labs Labs: Abnormal Labs 02/21/18 02/21/18 02/21/18 11:52 17:05 17:50 WBC RDW Seg Neuts % (Manual) Seg Neutrophils # Man Sodium Carbon Dioxide Creatinine Glucose Calcium Magnesium 4.30 H Lactate Dehydrogenase 182 H Total Protein Albumin Urine WBC (Auto) 7.0 H Ur Total Protein 24 Hr Urine Total Protein 02/22/18 02/22/18 02/22/18 00:45 05:45 11:08 WBC RDW Seg Neuts % (Manual) Seg Neutrophils # Man Sodium Carbon Dioxide Creatinine Glucose Calcium Magnesium 5.10 H 5.90 H Lactate Dehydrogenase Total Protein Albumin Urine WBC (Auto) Ur Total Protein 24 Hr 1105.00 H Urine Total Protein 85 H 02/22/18 02/22/18 02/24/18 12:07 21:51 13:40 WBC 11.6 H RDW 15.5 H Seg Neuts % (Manual) 74.0 H Seg Neutrophils # Man 8.6 H Sodium Carbon Dioxide Creatinine Glucose Calcium Magnesium 5.80 H 6.00 H Lactate Dehydrogenase Total Protein Albumin Urine WBC (Auto) Ur Total Protein 24 Hr Urine Total Protein 02/24/18 02/26/18 02/27/18 18:25 20:14 05:00 WBC RDW Seg Neuts % (Manual) Seg Neutrophils # Man Sodium 135 L Carbon Dioxide 21 L Creatinine 0.6 L 0.6 L 0.6 L Glucose 108 H Calcium 7.5 L Magnesium Lactate Dehydrogenase Total Protein 4.8 L Albumin 2.7 L Urine WBC (Auto) Ur Total Protein 24 Hr Urine Total Protein Laboratory Results - last 24 hr 02/26/18 02/26/18 02/26/18 20:14 20:14 20:14 WBC 8.2 RBC 4.18 Hgb 12.0 Hct 35.6 MCV 85 MCH 29 MCHC 34 RDW 15.1 Plt Count 241 Sodium 135 L Potassium 4.3 Chloride 98.0 Carbon Dioxide 23 Anion Gap 18 BUN 12 Creatinine 0.6 L Estimated GFR > 60 BUN/Creatinine Ratio 20 Glucose 90 Calcium 8.7 D Total Bilirubin 0.30 AST 36 ALT 43 Alkaline Phosphatase 96 Total Protein 4.8 L Albumin 2.7 L Albumin/Globulin Ratio 1.3 Blood Type B POSITIVE Antibody Screen Negative 02/27/18 02/27/18 05:00 05:00 WBC 8.8 RBC 4.09 Hgb 11.9 Hct 34.9 MCV 85 MCH 29 MCHC 34 RDW 15.2 Plt Count 227 Sodium Potassium Chloride Carbon Dioxide Anion Gap BUN Creatinine 0.6 L Estimated GFR > 60 BUN/Creatinine Ratio Glucose Calcium Total Bilirubin AST 28 ALT 37 Alkaline Phosphatase Total Protein Albumin Albumin/Globulin Ratio Blood Type Antibody Screen
[2018-02-27] MEDS: TYLENOL PO PRN ×2 (08:44→20:52)
[2018-02-27] MEDS ORDERED: NORCO 5/325 PO NR (09:00)
[2018-02-27] MEDS: PRENATAL VITAMIN PO SCH (11:30)
[2018-02-27] MEDS: PROCARDIA XL PO SCH ×2 (11:30→21:44)
[2018-02-27] MEDS ORDERED: NORCO 5/325 PO PRN (12:26)
--- NOTE | 2018-02-27 12:34 | Event Note ---
Date: 02/27/18 patient c/p persistent DYE not relieved by tylenol. She request additional medication. gabby ordered and Dr. Sandra make aware of patient's status. Requested RN get weight on patient.
[2018-02-27] MEDS: ZOFRAN IV PRN (12:41)
--- NOTE | 2018-02-27 14:36 | Event Note ---
Date: 02/27/18 Patient states that her headache is better. Discuss with Ms. Marshall the signs and symptoms of severe preeclampsia, including severe headache, abdominal pain, severely elevated blood pressures, visual disturbances and laboratory abnormalities. Also discussed the risks of premature delivery with infant, including signs and complications of lung immaturity and risks of brain hemorrhage. We discussed with her decision of permanent sterilization in light of possiblity of having a premature with difficulties. Patient said headache she experienced last night was very severe only improved off narcotics and also has a headache earlier today. Patient states her headache now for 5. Patient blood pressures improved after anti-hypertensive medication. Patient states she and her a very familiar with have an infant in intensive care because of their experience with her first infant. Patient states she had also had a long conversations about having her tubes tied at time of surgery and understands the risks of regret and the risks to the and and they desired to have a tubal ligation done at time of surgery. Patient some criteria for delivery symptoms of headache and will be indication despite the patient having normal liver functions. Patient discuss with her because her headache is better at present but discuss possibly of delivery.
--- NOTE | 2018-02-27 16:03 | Event Note ---
Date: 02/27/18 Patient states headache is better now. BPs 140s-150s/80s. Patients desire to continue present management for now. Will allow to eat. Precautions given.
[2018-02-27] MEDS: HEPARIN SUB-Q SCH (16:50)
--- NOTE | 2018-02-28 06:09 | Progress Note ---
Assessment and Plan 1. IUP at 27 3/7 weeks gestation 2. Preeclampsia - with severe features - pt advised to notify the nurse if her DYE does not resolve, or if she develops visual changes, CP, RUQ pain - CBC, CMP tomorrow - delivery is recommended no later than 34 weeks gestation, however a sooner delivery is recommended for worsening maternal status, NRFHT, uncontrolled HTN 3. IUGR Continue twice weekly BPP with dopplers - growth scans q 2 weeks (next due 03/01/18) 4. Incompetent Cervix - abdominal cerclage in place - will require delivery 5. Factor V Leiden Mutation - continue Heparin 5000 units SQ BID - Patient Problems (1) Elevated blood pressure affecting in second trimester, antepartum Onset Date: ~02/21/18 Current Visit: Yes Status: Acute Plan to address problem: BP 170-130/90-80 Pt continues to c/o DYE "Its not as bad as last night." No reports of blurred vision nor chest pain. SCD on at time of rounds. Pt is semi- fowlers Cough continues but pt reports it is less. IS at bedside (2) History of pulmonary embolus (PE) Onset Date: ~02/21/18 Current Visit: Yes Status: Chronic Plan to address problem: heparin 5,000 SubQ BID continues (3) Shirodkar cerclage present, antepartum Onset Date: ~02/21/18 Current Visit: Yes Status: Chronic Plan to address problem: No reports of LOF, bleeding, no contractions. (4) Asymmetric IUGR affecting , antepartum Onset Date: ~02/21/18 Current Visit: Yes Status: Chronic Plan to address problem: BPP and Doppler studies biweekly for assessment of wellbeing. [facility] to [facility] pt today. Subjective - Subjective Date of service: 02/28/18 (pt resting quietly; continues to c/o DYE) Principal diagnosis: IUP 27 17; severe Pre-e, H/O DVT, abdominal cerclage Interval history: EDC Confirmation: 05/28/2018 Gestational Age: 6 2/7 weeks Past History : 6 Term Births: 0 Premature Births: 1 Living Children: 1 Para: 1 Mult. Births: 0 Prev : 0 Aborta: 3 Elect. Ab: 1 Spont. Ab: 2 Ectopics: 0 # 1 Delivery date: 2001 Weeks Gestation: 6 Delivery type: EAB Comments: D & C # 2 Delivery date: 2004 Weeks Gestation: 8 Delivery type: SAB # 3 Delivery date: 06/06/2012 Weeks Gestation: 19 Delivery type: SAB Delivery location: [facility] Comments: hx supports cx incompetence/followed by labor D & E # 4 Delivery date: 03/08/2013 Weeks Gestation: 23 labor: yes Delivery type: Hours of labor: 18 Delivery location: [facility] Infant Sex: Female weight: 1 lb 2 oz Name: Wilber Comments: Cerclage placed PPROM (cerclage was placed at 14 wga) # 5 Delivery date: 2015 Weeks Gestation: 14 Delivery type: SAB Comments: was in L&D for cerclage and dx IUFD Past Medical History: Reviewed history from 05/03/2016 and no changes required: D V T (2009) PCOS Pulmonary embolism with OCPs Cerclage (2012) Factor V leiden deficiency Past Medical History Abnormal PAP: negative REGGIE Exposure: negative Infertility: negative Uterine Anomaly: negative Uterine Surgery (not C/S): negative Other Gynecologic Problems: negative Social Hx: Patient is single [employer] Smoking History: Patient has never smoked. Infection History Hx of STD: none Varicella/Chicken Pox Status: Previous Disease Genetic History Congenital Heart Defect: Mom: no Dad: no Ricardo Disease: Mom: no Dad: no Thalassemia Mom: no Dad: no Neural Tube Defect Mom: no Dad: no Down's Syndrome Mom: no Dad: no Mario-Sachs Mom: no Dad: no Sickle Cell Disease/Trait Mom: no Dad: no Hemophilia Mom: no Dad: no Muscular Dystrophy Mom: no Dad: no Cystic Fibrosis Mom: no Dad: no Greer Chorea Mom: no Dad: no Mental Retardation Mom: no Dad: no Fragile X Mom: no Dad: no Other Genetic/Chromosomal Disorder Mom: no Dad: no Child w/other defect Mom: no Dad: no Enviromental Exposures Xray Exposure: no Medication, drug, or alcohol use since LMP: no Chemical/Other Exposure: no Exposure to Cat Liter: no Hx of Parvovirus (Fifth Disease): no Occupational Exposure to Children: none Active Medications (reviewed today): DICLEGIS 10-10 MG ORAL TABLET DELAYED RELEASE (DOXYLAMINE-PYRIDOXINE) 2 tabs PO qhs, then 1 tab PO in AM and 1 tab PO at noon as needed for nausea PNV FOLIC ACID + IRON 27-1 MG ORAL TABLET ( VIT-FE FUMARATE-FA) 1 tab PO qdaily LOVENOX 40 MG/0.4ML SUBCUTANEOUS SOLUTION (ENOXAPARIN SODIUM) 1 Subq injection qdaily BACTRIM DS 800-160 MG ORAL TABLET (SULFAMETHOXAZOLE-TRIMETHOPRIM) 1 tab PO BID x 7 days ZOFRAN ODT 8 MG ORAL TABLET DISINTEGRATING (ONDANSETRON) 1 tab PO q12 hours prn nausea Current Allergies (reviewed today): No known allergies Laboratory Results Routine Urinalysis Leukocytes: negative Nitrite: negative Urobilinogen: negative Protein: negative Blood: negative Ketone: negative Bilirubin: negative Glucose: negative Urine HCG: positive Review of Systems General Denies fever, chills, sweats, anorexia, fatigue, weakness, malaise, weight loss and sleep disorder. Denies nausea, vomiting, headache, swelling of legs, abdominal pain, vaginal discharge, vaginal bleeding and contractions. Denies vaginal discharge, incontinence, dysuria, hematuria, urinary frequency, amenorrhea, menorrhagia, abnormal vaginal bleeding, pelvic pain, genital sores, decreased libido, painful periods, painful sex, urinary urgency, hot flashes, vaginal dryness, vaginal itching and vaginal odor. CV Denies chest pains, palpitations, syncope, dyspnea on exertion, orthopnea, PND and peripheral edema. Resp Denies cough, dyspnea at rest, excessive sputum, hemoptysis, wheezing and pleurisy. GI Denies nausea, vomiting, diarrhea, constipation, change in bowel habits, abdominal pain, melena, hematochezia, jaundice, gas/bloating, indigestion/ heartburn, dysphagia and odynophagia. Endo Denies cold intolerance, heat intolerance, polydipsia, polyphagia, polyuria and unusual weight change. Breast Denies left breast lump, right breast lump, nipple discharge, bloody discharge from nipple, breast pain, abnormal mammogram and breast enlargement. MS Denies back pain, joint pain, joint swelling, muscle cramps, muscle weakness, stiffness, arthritis, sciatica, restless legs, leg pain at night and leg pain with exertion. Derm Denies rash, itching, dryness and suspicious lesions. Neuro Denies paralysis, paresthesias, headache, seizures, tremors, vertigo, transient blindness, frequent falls, frequent headaches and difficulty walking. Psych Denies depression, anxiety, irritability and mood swings. Eyes Denies blurring, diplopia, irritation, discharge, vision loss, eye pain and photophobia. ENT Denies earache, ear discharge, tinnitus, decreased hearing, nasal congestion, nosebleeds, sore throat and hoarseness. Allergy Denies urticaria, allergic rash, hay fever and recurrent infections. Heme Denies abnormal bruising, bleeding and enlarged lymph nodes. Patient reports: movement normal, other (DYE), no loss of fluid, no vaginal bleeding, no contractions Objective - Vital Signs Vital Signs: Vital Signs - 12hr 02/27/18 02/27/18 02/27/18 19:49 20:00 20:44 Temperature 98 F Pulse Rate 88 93 H Respiratory 20 Rate Blood Pressure 157/91 123/69 02/27/18 02/27/18 02/27/18 21:44 21:49 22:44 Temperature Pulse Rate 88 86 84 Respiratory Rate Blood Pressure 156/82 157/79 147/83 02/27/18 02/28/18 02/28/18 23:44 00:05 00:08 Temperature 98.2 F Pulse Rate 82 82 Respiratory 20 Rate Blood Pressure 149/78 166/88 02/28/18 02/28/18 02/28/18 00:44 02:11 02:44 Temperature Pulse Rate 75 86 68 Respiratory Rate Blood Pressure 157/77 163/97 167/82 02/28/18 02/28/18 02/28/18 03:44 03:50 04:00 Temperature 97.6 F Pulse Rate 80 75 Respiratory 20 Rate Blood Pressure 173/93 166/91 02/28/18 02/28/18 02/28/18 04:24 04:44 05:44 Temperature Pulse Rate 83 84 78 Respiratory Rate Blood Pressure 153/93 145/85 137/80 - Exam Breasts: deferred Cardiovascular: Regular rate Lungs: Other (coughing; some whezzing noted in upper lung funes) Abdomen: Present: normal appearance, soft. Absent: distention, tenderness Uterus: Present: normal FHR: auscultation normal, category 1 Uterine Contraction Monitor Mode: External Uterine Contraction Pattern: Absent Extremities: edema Deep Tendon Reflex Grade: Normal +2 - Labs Labs: Abnormal Labs 02/21/18 02/21/18 02/21/18 11:52 17:05 17:50 WBC RDW Seg Neuts % (Manual) Seg Neutrophils # Man Sodium Carbon Dioxide Creatinine Glucose Calcium Magnesium 4.30 H Lactate Dehydrogenase 182 H Total Protein Albumin Urine WBC (Auto) 7.0 H Ur Total Protein 24 Hr Urine Total Protein 02/22/18 02/22/18 02/22/18 00:45 05:45 11:08 WBC RDW Seg Neuts % (Manual) Seg Neutrophils # Man Sodium Carbon Dioxide Creatinine Glucose Calcium Magnesium 5.10 H 5.90 H Lactate Dehydrogenase Total Protein Albumin Urine WBC (Auto) Ur Total Protein 24 Hr 1105.00 H Urine Total Protein 85 H 02/22/18 02/22/18 02/24/18 12:07 21:51 13:40 WBC 11.6 H RDW 15.5 H Seg Neuts % (Manual) 74.0 H Seg Neutrophils # Man 8.6 H Sodium Carbon Dioxide Creatinine Glucose Calcium Magnesium 5.80 H 6.00 H Lactate Dehydrogenase Total Protein Albumin Urine WBC (Auto) Ur Total Protein 24 Hr Urine Total Protein 02/24/18 02/26/18 02/27/18 18:25 20:14 05:00 WBC RDW Seg Neuts % (Manual) Seg Neutrophils # Man Sodium 135 L Carbon Dioxide 21 L Creatinine 0.6 L 0.6 L 0.6 L Glucose 108 H Calcium 7.5 L Magnesium Lactate Dehydrogenase Total Protein 4.8 L Albumin 2.7 L Urine WBC (Auto) Ur Total Protein 24 Hr Urine Total Protein Laboratory Results - last 24 hr 02/26/18 20:14 RPR Nonreactive
[2018-02-28] MEDS: TYLENOL PO PRN ×3 (06:30→16:14)
[2018-02-28] MEDS: PROCARDIA XL PO SCH ×2 (11:32→22:51)
[2018-02-28] MEDS: HEPARIN SUB-Q SCH ×2 (11:33→15:44)
[2018-02-28] MEDS: PRENATAL VITAMIN PO SCH (11:33)
--- NOTE | 2018-02-28 17:01 | Progress Note ---
Assessment and Plan - Patient Problems (1) 27 weeks gestation of Current Visit: Yes Status: Acute (2) Pre-eclampsia Current Visit: Yes Status: Acute Qualifiers: Trimester: third trimester Qualified Code(s): O14.93 - Unspecified pre- eclampsia, third trimester Plan to address problem: Now with persistent worsening severe features, will proceed with c/s b/c she has an abdominal cerclage (3) Asymmetric IUGR affecting , antepartum Onset Date: ~02/21/18 Current Visit: Yes Status: Chronic (4) Factor 5 Leiden mutation, heterozygous Onset Date: ~02/21/18 Current Visit: Yes Status: Chronic (5) History of pulmonary embolus (PE) Onset Date: ~02/21/18 Current Visit: Yes Status: Chronic (6) Sterilization Current Visit: Yes Status: Acute (7) Shirodkar cerclage present, antepartum Onset Date: ~02/21/18 Current Visit: Yes Status: Acute Plan to address problem: Actually she has an abdominal cerclage Subjective - Subjective Date of service: 02/28/18 Principal diagnosis: IUP 27 12/02; severe Pre-e, H/O DVT, abdominal cerclage Interval history: Patient with persistent DYE unresponsive 3 doses of tylenol. She now she has worsening sever features. Will proceed with delivery. Concerns were explained, options reviewed. Patient states she cannot take the DYE anymore. She is aware of prematurity and complications that can be associated with at the age. She's more concerned that she will not be able to survive the complications of severe preeclampsia if the disease progresses any further. As per her discussion with Dr. Sandra she desires to proceed with sterilization and cerclage removal. She was again informed sterilization is a permanent irreversible procedure that will prevent her from having any other children and the most common complication is regret. She voiced understanding and desires to proceed with delivery, sterilization and cerclage removal. Consents with reviewed and signed. Plan of care was discussed with Dr. Burrows who agrees with proceeding with delivery. Patient reports: movement normal, other (DYE), no loss of fluid, no vaginal bleeding, no contractions Objective - Vital Signs Vital Signs: Vital Signs - 12hr 02/28/18 02/28/18 02/28/18 04:44 05:44 08:45 Temperature 98.2 F Pulse Rate 84 78 82 Respiratory 20 Rate Blood Pressure 145/85 137/80 Blood Pressure 150/81 [Right] O2 Sat by Pulse 96 Oximetry 02/28/18 02/28/18 02/28/18 08:49 08:51 09:44 Temperature Pulse Rate 82 82 67 Respiratory Rate Blood Pressure 150/81 153/76 Blood Pressure [Right] O2 Sat by Pulse 96 Oximetry 02/28/18 02/28/18 02/28/18 11:31 11:39 11:44 Temperature Pulse Rate 88 86 Respiratory 20 Rate Blood Pressure 141/86 154/89 Blood Pressure [Right] O2 Sat by Pulse Oximetry 02/28/18 02/28/18 02/28/18 12:44 13:44 14:44 Temperature Pulse Rate 70 82 76 Respiratory Rate Blood Pressure 139/83 159/91 147/85 Blood Pressure [Right] O2 Sat by Pulse Oximetry 02/28/18 02/28/18 15:44 15:45 Temperature Pulse Rate 83 78 Respiratory Rate Blood Pressure 158/85 150/87 Blood Pressure [Right] O2 Sat by Pulse Oximetry - Exam Narrative Exam: Distressed Lungs: Clear to auscultation, Normal air movement Abdomen: Present: normal appearance, soft Deep Tendon Reflex Grade: Normal +2 - Labs Labs: Abnormal Labs 02/21/18 02/21/18 02/21/18 11:52 17:05 17:50 WBC RDW Seg Neuts % (Manual) Seg Neutrophils # Man Sodium Carbon Dioxide Creatinine Glucose Calcium Magnesium 4.30 H Lactate Dehydrogenase 182 H Total Protein Albumin Urine WBC (Auto) 7.0 H Ur Total Protein 24 Hr Urine Total Protein 02/22/18 02/22/18 02/22/18 00:45 05:45 11:08 WBC RDW Seg Neuts % (Manual) Seg Neutrophils # Man Sodium Carbon Dioxide Creatinine Glucose Calcium Magnesium 5.10 H 5.90 H Lactate Dehydrogenase Total Protein Albumin Urine WBC (Auto) Ur Total Protein 24 Hr 1105.00 H Urine Total Protein 85 H 02/22/18 02/22/18 02/24/18 12:07 21:51 13:40 WBC 11.6 H RDW 15.5 H Seg Neuts % (Manual) 74.0 H Seg Neutrophils # Man 8.6 H Sodium Carbon Dioxide Creatinine Glucose Calcium Magnesium 5.80 H 6.00 H Lactate Dehydrogenase Total Protein Albumin Urine WBC (Auto) Ur Total Protein 24 Hr Urine Total Protein 02/24/18 02/26/18 02/27/18 18:25 20:14 05:00 WBC RDW Seg Neuts % (Manual) Seg Neutrophils # Man Sodium 135 L Carbon Dioxide 21 L Creatinine 0.6 L 0.6 L 0.6 L Glucose 108 H Calcium 7.5 L Magnesium Lactate Dehydrogenase Total Protein 4.8 L Albumin 2.7 L Urine WBC (Auto) Ur Total Protein 24 Hr Urine Total Protein
[2018-02-28] MEDS ORDERED: BICITRA PO ONE (17:03)
[2018-02-28] MEDS ORDERED: REGLAN IV ONE (17:03)
[2018-02-28] MEDS ORDERED: PEPCID IV ONE (17:03)
[2018-02-28] MEDS ORDERED: ANCEF/STERILE WATER 2 GM/20 ML 2 GM/20 ML SYRINGE IV NR (18:00)
[2018-02-28] MEDS ORDERED: LACTATED RINGERS 1,000 ML IV SCH ×3 (18:00→22:00)
[2018-02-28] MEDS ORDERED: PITOCin/NS 20 UNIT/1000ML DRIP 20 UNITS/1,000 ML BAG IV SCH ×2 (18:00→21:18)
--- NOTE | 2018-02-28 18:52 | Anesthesia Consultation ---
Anesthesia Consult and Med Hx Date of service: 02/28/18 - Airway Anesthetic Teeth Evaluation: Good ROM Head & Neck: Adequate Mallampati Class: Class II Intubation Access Assessment: Probably Good - Pulmonary Exam CTA: Yes - Cardiac Exam Cardiac Exam: RRR - Pre-Operative Health Status Proposed Anesthetic Plan: Spinal - Pulmonary Hx Asthma: No - Cardiovascular System Hx Hypertension: Yes (/PIH WITH HEADACHES-27 WEEKS GESTATION) Hx Coronary Artery Disease: Yes - Central Nervous System Hx Seizures: No Hx Psychiatric Problems: No - Endocrine Hx Renal Disease: No Hx Hypothyroidism: No Hx Hyperthyroidism: No - Hematic Hx Anemia: No (pt has clotting disorder) Hx Sickle Cell Disease: No - Other Systems Hx Alcohol Use: No
[2018-02-28] MEDS ORDERED: WATER FOR IRRIG STERILE IR ONE (19:20)
[2018-02-28] MEDS ORDERED: NACL 0.9% IR ONE (19:20)
[2018-02-28] MEDS ORDERED: ZOFRAN IV PRN (21:18)
[2018-02-28] MEDS ORDERED: MAGNESIUM SULFATE 4GM/100ML 4 GM/100 ML BAG IV ONE (21:18)
[2018-02-28] MEDS ORDERED: PHENERGAN PR PRN (21:18)
[2018-02-28] MEDS ORDERED: ANCEF/NS 1 GM/50 ML 1 GM/50 ML BAG IV SCH (21:18)
[2018-02-28] MEDS ORDERED: TUCKS PAD TP PRN (21:18)
[2018-02-28] MEDS ORDERED: LANSINOH TP PRN (21:18)
[2018-02-28] MEDS ORDERED: NARCAN 0.4 MG/1 ML IV PRN ×2 (21:18)
[2018-02-28] MEDS ORDERED: TYLENOL PO PRN (21:18)
[2018-02-28] MEDS ORDERED: MILK OF MAGNESIA PO PRN (21:18)
[2018-02-28] MEDS ORDERED: SODIUM CHLORIDE FLUSH SYRINGE 10 ML IV NR (21:18)
[2018-02-28] MEDS ORDERED: MYLICON PO PRN (21:18)
[2018-02-28] MEDS ORDERED: DILAUDID IV PRN (21:24)
[2018-02-28] MEDS: MAGNESIUM SULFATE 40GM/1000ML 40 GM/1,000 ML BAG IV SCH (21:39)
[2018-02-28] MEDS ORDERED: APRESOLINE IV PRN (21:55)
--- NOTE | 2018-02-28 21:58 | Operative Report ---
Operative Report Operative Report: Date: 02/28/2018 Preoperative diagnosis 1. Intrauterine at 27 weeks 2. Worsening severe preeclampsia 3. Intrauterine growth restriction 4. Factor V Leiden mutation with a history of pulmonary embolism 5. Cervical insufficiency with abdominal cerclage 6. Desires sterilization Postoperative diagnosis: 1. Intrauterine at 27 weeks 2. Worsening severe preeclampsia 3. Intrauterine growth restriction 4. Factor V Leiden mutation with a history of pulmonary embolism 5. Cervical insufficiency with abdominal cerclage 6. Desires sterilization 7. Breech presentation Procedure: 1. Classical delivery 2. Bilateral salpingectomy for sterilization Surgeon: Lee Ann Urias MD Deodorizer Operator: Archana Fulton CNM Anesthesia: Combined spinal epidural Anesthesiologist: Dr. Oliva Estimated blood loss: 700 mL Urine out: 200 mL Findings: Live born female . Weight 1 pounds 8 oz. Apgars 7 at 1 minute and 9 at 5 minutes. Grossly normal uterus, tubes and ovaries Procedure: After risk, benefits, complications, consequences and alternatives for th procedure were discussed with patient and consents were reviewed and signed, she was taken to the OR where combined spinal epidural anesthesia was placed. She was then placed in the left lateral tilt position, and prepped and draped in the usual sterile fashion. Timeout was performed, and an appropriate level of anesthesia was noted, a Pfannenstiel incision was made and extended to the fascia which was incised and extended in the lateral directions. The overlying fascia was sharply dissected away from the underlying rectus muscles in the superior and inferior directions. The midline was entered with blunt and sharp dissection. The lower uterine segment was undeveloped and the bladder flat was unable to be easily accessed and therefore the decision was made to perform a classical incision. Clear fluid was noted. The infant was delivered from breech position. Mouth and nose were bulb suctioned. Spontaneous cry and excellent tone were noted. Cord was doubly clamped and cut. The was given to /resuscitation team present. The placenta was manually extracted. The uterus was then exteriorized and cleared of any further products of conception or placental tissue. The incision was reapproximated in 3 layers using 0 Vicryl in a running interlocking stitch for the first layer. The second layer was closed in imbricating fashion. And the serosa was reapproximated using interrupted [id number] stitches.This was noted. Once confirmation was obtained from the patient proceed with sterilization, bilateral salpingectomy was performed by elevating the tubes and using electrocoagulation for excision. There was bleeding noted on the remaining aspect tubes that were attached to the uterus. These areas were made hemostatic with 0 Vicryl in a [id number] fashion. Tisseel was applied to the adnexa to ensure hemostasis. Each fallopian tube was sent to pathology in separate containers. Once hemostasis was noted, the uterus was allowed back into the pelvic cavity. The pelvis was irrigated with warm normal saline. Attention was turned to the adnexa where hemostasis was noted. Attention was then turned to attempt to remove the abdominal cerclage. It was noted that the Mersilene tape was with in cervix and covered with dense adhesions anteriorly and posteriorly. The findings were discussed with both the patient and her at that point the decision was made to leave the cerclage intact due to concerns for bleeding and injury to uterine vessels, ureters and bladder. Attention was again turned to the adnexa where hemostasis was noted as well as the vertical incision where again hemostasis was noted. Tisseel was applied to the uterine incision for further hemostasis. Interceed was then placed to prevent adhesions. The rectus muscles were approximated using 0 Vicryl in a single simple stitch 3. Once hemostasis was noted, the fascia was reapproximated using 0 Vicryl and some running stitch. Once hemostasis was noted skin incision was reapproximated using 4-0 Vicryl on a Vin needle in a subcuticular manner. Counts were correct 3. Patient tolerated procedure well, she was taken to PACU in stable condition.
[2018-02-28] MEDS ORDERED: MORPHINE PCA 30MG/30ML IV SCH (22:00)
[2018-03-01] MEDS: ceFAZolin 1 GM in NACL 0.9% 20 ML IV SCH ×2 (04:53→13:38)
[2018-03-01] MEDS ORDERED: BOOSTRIX IM ONE (06:00)
--- NOTE | 2018-03-01 07:45 | Progress Note ---
Assessment and Plan patient reports feeling well, aside from some recent nausea, <12hr after c/s for severe pre-e. Continue magnesium sulfate x 24h post delivery. Patient reports relief from DYE she had prior to delivery. b/p's 150-160's/90's prior to dose of hydralizine, now 120-130's/80's. whitmore cath remains in place, clear yellow urine noted, output adequate. recent mag level 4.4. postop H&H to be drawn @ 0800. Continue current postop pathway. - Patient Problems (1) Factor 5 Leiden mutation, heterozygous Onset Date: ~02/21/18 Current Visit: Yes Status: Chronic (2) History of pulmonary embolus (PE) Onset Date: ~02/21/18 Current Visit: Yes Status: Chronic (3) Pre-eclampsia Current Visit: Yes Status: Acute Qualifiers: Trimester: third trimester Qualified Code(s): O14.93 - Unspecified pre- eclampsia, third trimester (4) delivery delivered Current Visit: Yes Status: Acute Subjective - Subjective Date of service: 03/01/18 Principal diagnosis: postop day #1 s/p c/s, severe pre-e Patient reports: pain well controlled, nauseated (after drinking juice), other ( no DYE, visual changes or epigastric pain), no flatus : in NICU Objective - Vital Signs Latest vital signs: Vital Signs Temp Pulse Resp BP BP Pulse Ox 03/01/18 07:10 90 20 127/80 03/01/18 06:56 94 H 20 128/82 96 03/01/18 06:41 94 H 20 125/81 03/01/18 06:25 100 H 20 125/83 03/01/18 06:11 98 H 133/87 03/01/18 06:05 85 141/90 03/01/18 06:00 82 156/94 03/01/18 05:54 79 167/96 03/01/18 04:25 98.7 F 81 18 162/97 96 03/01/18 02:30 85 18 152/92 96 03/01/18 00:45 87 158/94 03/01/18 00:15 98.5 F 89 18 168/96 97 02/28/18 23:19 16 97 02/28/18 23:10 155/87 97 02/28/18 23:05 164/93 97 02/28/18 23:00 155/90 97 02/28/18 22:54 160/91 97 02/28/18 22:52 97 H 02/28/18 22:25 98.2 F 02/28/18 22:11 81 02/28/18 22:05 73 19 151/87 99 02/28/18 22:00 79 25 H 145/85 98 02/28/18 21:55 87 15 139/77 96 02/28/18 21:50 87 24 149/91 98 02/28/18 21:45 74 25 H 162/87 99 02/28/18 21:40 76 25 H 153/80 98 02/28/18 21:34 88 28 H 152/88 98 02/28/18 21:28 83 25 H 145/82 99 02/28/18 21:23 84 22 148/95 99 02/28/18 21:18 77 17 163/95 99 02/28/18 21:12 79 26 H 150/85 99 02/28/18 21:06 97.6 F 86 20 149/82 98 02/28/18 19:02 78 157/79 02/28/18 18:44 67 137/74 02/28/18 17:44 74 136/97 02/28/18 16:44 76 155/86 02/28/18 15:45 78 150/87 02/28/18 15:44 83 158/85 02/28/18 14:44 76 147/85 02/28/18 13:44 82 159/91 02/28/18 12:44 70 139/83 02/28/18 11:44 86 154/89 02/28/18 11:39 88 141/86 02/28/18 11:31 20 02/28/18 09:44 67 153/76 02/28/18 08:51 82 96 02/28/18 08:49 82 150/81 02/28/18 08:45 98.2 F 82 20 150/81 96 Intake and Output 02/28/18 02/28/18 03/01/18 15:59 23:59 07:59 Intake Total 2100 Output Total 1350 1200 Balance 750 -1200 Intake: IV 2100 Output: Urine 1350 1200 Indwelling Catheter 1000 1200 Other: Total, Output Amount 1000 500 Estimated Blood Loss 700 - Exam Breasts: Present: normal Cardiovascular: Present: Regular rate Lungs: Present: Clear to auscultation, Normal air movement Abdomen: Present: normal appearance, soft Vulva: both: normal Uterus: Present: normal, firm, fundal height below umbilicus Extremities: Present: edema (2+ edema bilaterally in hands and feet) Deep Tendon Reflex Grade: Normal but brisk +3 Incision: Present: normal, dry, dressed - Labs Labs: Abnormal lab results 03/01/18 Range/Units 01:46 Magnesium 4.40 H (1.7-2.3) mg/dL
[2018-03-01] MEDS ORDERED: HEPARIN SUB-Q SCH (09:00)
[2018-03-01] MEDS: LOVENOX SUB-Q SCH (10:42)
[2018-03-01] MEDS: PROCARDIA XL PO SCH ×2 (10:46→23:18)
[2018-03-01] MEDS: PERCOCET 5/325 PO PRN ×2 (10:48→23:16)
[2018-03-01 14:15] LABS: Hematocrit 36.8 % (30.3-42.9); Hemoglobin 12.1 gm/dl (10.1-14.3)
[2018-03-01] MEDS: MAGNESIUM SULFATE 40GM/1000ML 40 GM/1,000 ML BAG IV SCH (18:32)
--- NOTE | 2018-03-02 08:37 | Progress Note ---
Assessment and Plan - Patient Problems (1) delivery delivered Current Visit: Yes Status: Acute Plan to address problem: She was informed of the vertical uterine incision Continue Post C/S pathway Baby in NICU- 1#8oz (2) Pre-eclampsia Current Visit: Yes Status: Acute Qualifiers: Trimester: third trimester Qualified Code(s): O14.93 - Unspecified pre- eclampsia, third trimester Plan to address problem: Continue Procardia for now (3) delivery Current Visit: Yes Status: Acute (4) Factor 5 Leiden mutation, heterozygous Onset Date: ~02/21/18 Current Visit: Yes Status: Chronic Plan to address problem: Continue Lovenox (5) History of pulmonary embolus (PE) Onset Date: ~02/21/18 Current Visit: Yes Status: Chronic (6) Sterilization Current Visit: Yes Status: Acute (7) Shirodkar cerclage present, antepartum Onset Date: ~02/21/18 Current Visit: Yes Status: Acute Plan to address problem: Abdominal cerclage, unable to be removed Subjective - Subjective Date of service: 03/02/18 Principal diagnosis: postop day #2 s/p cc/s, severe pre-e Interval history: Resting in bed, no complaints, feels much better. Minimal bleeding Patient reports: appetite normal, voiding normally, pain well controlled, flatus Objective - Vital Signs Latest vital signs: Vital Signs Temp Pulse Resp BP Pulse Ox 03/02/18 04:40 98.8 F 89 18 145/82 97 03/02/18 00:20 98.6 F 89 18 156/88 97 03/01/18 20:15 99.2 F 88 18 146/88 96 03/01/18 16:14 98.7 F 81 20 142/84 94 03/01/18 12:24 98.6 F 88 20 149/90 95 03/01/18 10:48 20 03/01/18 10:08 98.6 F 82 20 132/81 94 Intake and Output 03/01/18 03/02/18 03/02/18 22:59 06:59 14:59 Intake Total 1240 120 Output Total 2100 400 Balance -860 -280 Intake: IV 1000 MAGNESIUM SULFATE 40GM/ 1000 1000ML 40 gm In 1,000 ml @ 2 GM/HR 50 mls/hr IV DIRECT GABRIELE Rx#:[id number] Oral 240 120 Output: Urine 2100 400 Indwelling Catheter 2100 Void 400 Other: Total, Intake Amount 120 120 Total, Output Amount 800 400 - Exam Breasts: Present: normal Cardiovascular: Present: Regular rate Lungs: Present: Clear to auscultation, Normal air movement Abdomen: Present: normal appearance, soft, tenderness, normal bowel sounds Uterus: Present: fundal height below umbilicus. Absent: tenderness Extremities: Present: normal. Absent: tenderness, edema Incision: Present: normal, dry, intact (steristrips present) - Labs Labs: Abnormal lab results 03/01/18 03/01/18 03/01/18 Range/Units 08:22 13:41 19:57 Magnesium 6.00 H 6.40 H 5.20 H (1.7-2.3) mg/dL
[2018-03-02] MEDS: PERCOCET 5/325 PO PRN ×2 (10:25→21:54)
[2018-03-02] MEDS: PROCARDIA XL PO SCH ×2 (10:25→21:55)
[2018-03-02] MEDS: LOVENOX SUB-Q SCH (10:25)
[2018-03-02] MEDS ORDERED: DULCOLAX PR PRN (22:17)
[2018-03-03 09:04] VITALS: BP 120/78
--- NOTE | 2018-03-03 09:15 | Discharge Summary ---
Providers - Providers Date of Admission: 02/21/18 10:11 Date of discharge: 03/03/18 Attending physician: ROMAN PHILLIPS 02/28/18 21:18 Consult to [employer] [CONS] Routine Reason For Exam: Primary care physician: RADHA MAXWELL Hospitalization Condition: Good Procedures: Classical delivery with bilateral salpingectomy for sterilization Hospital course: This is a 32-year-old female who was admitted 02/21/2018 at 26 weeks gestation to be evaluated for elevated blood pressures noted at the perinatologist office that day. She was diagnosed with severe preeclampsia. After receiving steroids for lung maturity patient was observed. She was given several doses of hydralazine IV and had to be started on Procardia XL to control her blood pressures. She had worsening of the severe preeclampsia and the decision was made to proceed with delivery. She had an abdominal cerclage placed early in her therefore she had a classical delivery with bilateral salpingectomy for sterilization at 27 weeks gestation. The abdominal cerclage was unable to be removed safely therefore it remained intact patient and her are aware. Her postoperative course was unremarkable. Today patient is without any complaints states she has minimal bleeding. She states she feels significantly better and desires discharge home. Disposition: - TO HOME OR SELFCARE - Discharge Diagnoses (1) delivery delivered Status: Acute (2) Pre-eclampsia Status: Acute Qualifiers: Trimester: third trimester Qualified Code(s): O14.93 - Unspecified pre- eclampsia, third trimester Comment: Symptoms appear to be resolving. Blood pressures continued to be labile however they're less than 160/100. She will continue Procardia 30 XL twice a day. She is instructed to check her blood pressures twice a day. She is instructed to call the office if her blood pressure is greater than 160/100 or less than 120/70 (3) delivery Status: Acute (4) Factor 5 Leiden mutation, heterozygous Status: Chronic Comment: Patient states she has her Lovenox already and has a refill 2. She was instructed to continue the Lovenox once a day for now. (5) History of pulmonary embolus (PE) Status: Chronic (6) Sterilization Status: Acute (7) Shirodkar cerclage present, antepartum Status: Acute Core Measure Documentation - Palliative Care Palliative Care/ Comfort Measures: Not Applicable - Core Measures Any of the following diagnoses?: DVT/PE - VTE Discharge Requirements Deep Vein Thrombosis/Pulmonary Embolism Present on Admission: No Has pt received <5 days of overlap therapy or INR<2.0: No (she is on prophylactic Lovenox therapy) Anticoagulant overlap therapy prescribed at discharge: Yes Exam - Constitutional Vitals: Temp Pulse Resp BP Pulse Ox 98.5 F 98 H 20 120/78 97 03/03/18 09:03 03/03/18 09:03 03/03/18 00:00 03/03/18 09:03 03/03/18 00:00 Breasts are soft no engorgement no tenderness General appearance: Present: no acute distress - Neck Neck: Present: supple - Respiratory Respiratory effort: normal - Extremities Extremities: no ischemia Extremity abnormal: edema (trace) - Abdominal General gastrointestinal: Present: soft Female genitourinary: Present: other (unable to palpate fundus of uterus due to body habitus.) - Integumentary Integumentary: Present: clear, warm, dry (incision without signs and symptoms of infection Steri-Strips intact) - Psychiatric Psychiatric: appropriate mood/affect Plan Activity: other (no sex. Ambulate on on your property approximately 1 mile a day. Void frequently.) Weight Bearing Status: Weight Bear as Tolerated Diet: regular Wound: open to air, keep clean and dry Special Instructions: no heavy lifting (>25#) Additional Instructions: Continue Lovenox once a day as directed. She already has a prescription with refills for her Lovenox. She is instructed to call the office if her blood pressure is greater than 160/100 or less than 120/70. Follow up with: BENJAMÍN MITCHELL MD [Staff Physician] - 03/06/18 9:30 am ([facility]) Prescriptions: Ibuprofen [Motrin 800 MG tab] 800 mg PO TID PRN #30 tablet PRN Reason: Pain Metoclopramide [Reglan TAB] 10 mg PO Q6H #60 tab NIFEdipine XL [Procardia Xl] 30 mg PO Q12HR 1 Days #30 tab oxyCODONE /ACETAMINOPHEN [Percocet 5/325 mg] 1 - 2 tab PO Q4HR PRN #30 tablet PRN Reason: Pain
== END 2018-03-03 10:45 | disposition home or self-care (01) | DRG 765 ==
LOC: LD 10:11 → OB 03-01 00:28
PROVIDERS: ADMIT Obstetrics & Gynecology; ATTEND Obstetrics & Gynecology
PROC: 10D00Z0 Extraction of Products of Conception, High, Open Approach (ICD-10-PCS; principal; 2018-02-28)
PROC: 0UB70ZZ Excision of Bilateral Fallopian Tubes, Open Approach (ICD-10-PCS; 2018-02-28)
PROC: 3E0234Z Introduction of Serum, Toxoid and Vaccine into Muscle, Percutaneous Approach (ICD-10-PCS; 2018-03-01)
DX: O14.14 Severe pre-eclampsia complicating childbirth (principal); O34.32 Maternal care for cervical incompetence, second trimester; O99.12 Other diseases of the blood and blood-forming organs and certain disorders involving the immune mechanism complicating childbirth; D68.51 Activated protein C resistance; O76 Abnormality in fetal heart rate and rhythm complicating labor and delivery; O32.1XX0 Maternal care for breech presentation, not applicable or unspecified; O36.5920 Maternal care for other known or suspected poor fetal growth, second trimester, not applicable or unspecified; Z37.0 Single live birth; Z86.711 Personal history of pulmonary embolism; Z79.01 Long term (current) use of anticoagulants; Z3A.27 27 weeks gestation of pregnancy; Z30.2 Encounter for sterilization; Z23 Encounter for immunization
CPT/HCPCS: 36415; 71045; 76819; 76820; 80048; 80053; 81001; 82565; 83615; 83735; 84156; 84450; 84460; 84550; 85007; 85014; 85018; 85025; 85027; 86592; 86850; 86900; 86901; 88302; 88305; 93970; 94640; 99211; C9250; G0463; J0360; J0690; J0702; J1644; J1650; J2270; J2405; J2590; J2765; J3475; J7120